=== PATIENT | female | born 1940 | race Caucasian/White ===

== ENCOUNTER → 2016-09-27 | Outpatient (CLI) | payer MEDICARE ==
--- NOTE | 2016-10-07 09:27 | MM ---
Reason for exam: screening (asymptomatic). Last mammogram was performed 1 year and 7 months ago. History: Patient is postmenopausal. Family history of breast cancer in sister. Benign excisional biopsy of the left breast, 1996. Physical Findings: A clinical breast exam by your physician is recommended on an annual basis and results should be correlated with mammographic findings. MG Screening Mammo w CAD Bilateral CC and MLO view(s) were taken. Prior study comparison: March 11, 2015, mammogram, performed at [facility]. January 31, 2014, mammogram, performed at [facility]. There are scattered fibroglandular densities. No significant changes when compared with prior studies. ASSESSMENT: Negative, BI-RAD 1 RECOMMENDATION: Routine screening mammogram of both breasts in 1 year.
== END | disposition home or self-care (01) ==
LOC: RADMAMWWP 16:35
PROVIDERS: ATTEND Family Medicine
DX: Z12.31 Encounter for screening mammogram for malignant neoplasm of breast (principal)

== ENCOUNTER 2019-12-14 10:36 | Emergency (ER) | payer MEDICARE ==
[2019-12-14] MEDS ORDERED: SODIUM CHLORIDE 0.9% 500 ML 500 ML IV STA (11:14)
[2019-12-14] MEDS ORDERED: LABETALOL 5 MG/ML VIAL MDV IVP STA (11:14)
[2019-12-14 11:42] LABS: Basophils % (A) 1 %; Eosinophils # (A) 0.2 k/uL (0-0.7); Eosinophils % (A) 3 %; HCT 43.2 % (34.0-46.0); HGB 14.1 gm/dL (11.4-16.0); Lymphocytes # (A) 1.7 k/uL (1.0-4.8); Lymphocytes % (A) 25 %; MCH 28.8 pg (25.0-35.0); MCHC 32.7 g/dL (31.0-37.0); Mean Platelet Volume 7.1; Monocytes # (A) 0.4 k/uL (0-1.0); Monocytes % (A) 5 %; Neutrophils # (A) 4.4 k/uL (1.3-7.7); Neutrophils % (A) 65 %; Platelet Count 277 k/uL (150-450); RDW 13.6 % (11.5-15.5); WBC 6.7 k/uL (3.8-10.6)
[2019-12-14 11:43] LABS: Appearance,Urine Clear (Clear); Bacteria,Urine Many /hpf; Bilirubin,Urine Negative (Negative); Blood,Urine Negative (Negative); Color,Urine Light Yellow; Glucose,Urine (UA) Negative (Negative); Ketones,Urine Negative (Negative); Leukocyte Esterase,Urine Moderate (Negative); Nitrite,Urine Negative (Negative); PH, Urine 6.5 (5.0-8.0); Protein,Urine Negative (Negative); RBC,Urine 1 /hpf (0-5); Specific Gravity,Urine 1.005 (1.001-1.035); Squamous Epithelial Cell,Urine 2 /hpf (0-4); Urobilinogen,Urine <2.0 mg/dL (<2.0); WBC,Urine 6 /hpf (0-5)
[2019-12-14 11:54] LABS: Partial Thromboplastin Time 22.8 sec (22.0-30.0); Prothrombin Time 10.1 sec (9.0-12.0)
[2019-12-14 11:55] LABS: Albumin 4.4 g/dL (3.5-5.0); Calcium 9.5 mg/dL (8.4-10.2); Total Bilirubin 0.5 mg/dL (0.2-1.3); Total Protein 7.5 g/dL (6.3-8.2)
--- NOTE | 2019-12-14 12:01 | ED ---
Headache HPI - General Chief Complaint: Headache Stated Complaint: High BP/headache Time Seen by Provider: 12/14/19 10:50 Mode of arrival: ambulatory Limitations: no limitations - History of Present Illness Initial Comments: Patient is a 79-year-old female presenting to the emergency Department with complaints of intermittent headaches as well as high blood pressure since this morning. Patient states she has been dealing with elevated blood pressure for the last 2 months. She states she had a brain MRI in the middle of September because she was having elevated blood pressure and headaches. Patient states there is nothing significant on the MRI. Patient's doctor did start her on metoprolol which she has been taking in the morning every day. She does monitor her blood pressures at home. Patient states she gets these "sharp shooting pains on the left side of her head" that lasts anywhere from a few minutes to 10 minutes and then they go completely away. Patient states that happened this morning a few different times which cause her to become nauseous and now she feels tired. At this time, she currently does not have the sharp shooting pains, no nausea. She denies any recent fever, chills, chest pain, short of breath, abdominal pain, urinary complaints. She states she has not been any other new medications recently. She denies any falls or trauma. She denies any blurry vision, eye pain. She has no further complaints at this time. Upon arrival to the ER, patient's blood pressure is 203/78, rest of vitals were normal. Recheck of the blood pressure approximately 20 minutes later was 162/82. - Related Data Home Medications Medication Instructions Recorded Confirmed Aspirin EC [Ecotrin Low Dose] 81 mg PO DAILY 12/14/19 12/14/19 Atorvastatin [Lipitor] 10 mg PO Q48H 12/14/19 12/14/19 Cholecalciferol [Vitamin D3 (25 1,000 unit PO DAILY 12/14/19 12/14/19 Mcg = 1000 Iu)] Metoprolol Succinate [Toprol XL] 50 mg PO DAILY 12/14/19 12/14/19 Multivitamins, Thera [Multivitamin 1 tab PO DAILY 12/14/19 12/14/19 (formulary)] Vitamin B Complex 1 cap PO DAILY 12/14/19 12/14/19 Allergies Allergy/AdvReac Type Severity Reaction Status Date / Time Sulfa (Sulfonamide Allergy Unknown Verified 12/14/19 11:54 Antibiotics) Childhood valacyclovir [From Valtrex] Allergy Rash/Hives Verified 12/14/19 11:54 Review of Systems ROS Statement: Those systems with pertinent positive or pertinent negative responses have been documented in the HPI. ROS Other: All systems not noted in ROS Statement are negative. Past Medical History Past Medical History: Hyperlipidemia, Hypertension History of Any Multi-Drug Resistant Organisms: None Reported Past Surgical History: No Surgical Hx Reported Past Psychological History: No Psychological Hx Reported Smoking Status: Never smoker Past Alcohol Use History: None Reported Past Drug Use History: None Reported General Exam - General Exam Comments Initial Comments: GENERAL: Patient is well-developed and well-nourished. Patient is nontoxic and in no acute distress. HEAD: Atraumatic, normocephalic. No pain to palpation of the temporal areas. EYES: Pupils equal round and reactive to light, extraocular movements intact, sclera anicteric, conjunctiva are normal. Eyelids were unremarkable. ENT: TMs normal, nares patent, oropharynx clear without exudates. Moist mucous membranes. NECK: Normal range of motion, supple without lymphadenopathy or JVD. LUNGS: Unlabored respirations. Breath sounds clear to auscultation bilaterally and equal. No wheezes rales or rhonchi. HEART: Regular rate and rhythm without murmurs, rubs or gallops. ABDOMEN: Soft, nontender, normoactive bowel sounds. No guarding, no rebound. No masses appreciated. : Deferred MUSCULOSKELETAL: Normal extremities with adequate strength and normal range of motion, no pitting or edema. No clubbing or cyanosis. NEUROLOGICAL: Patient is alert and oriented x 3. Motor and sensory are also intact. Cranial nerves II through XII grossly intact. Symmetrical smile. Normal speech, normal gait. PSYCH: Normal mood, normal affect. SKIN: Warm, Dry, normal turgor, no rashes or lesions noted. Limitations: no limitations Course Vital Signs 12/14/19 12/14/19 12/14/19 10:39 11:25 11:40 Temperature 97.9 F Pulse Rate 72 70 72 Respiratory 20 18 18 Rate Blood Pressure 203/78 162/82 145/69 O2 Sat by Pulse 99 98 98 Oximetry 12/14/19 12/14/19 12/14/19 12:34 12:57 13:00 Temperature Pulse Rate 74 72 62 Respiratory 20 16 20 Rate Blood Pressure 197/87 177/77 164/73 O2 Sat by Pulse 98 98 98 Oximetry 12/14/19 12/14/19 14:00 14:15 Temperature 98.2 F Pulse Rate 61 63 Respiratory 20 20 Rate Blood Pressure 154/78 152/69 O2 Sat by Pulse 98 99 Oximetry Medical Decision Making - Medical Decision Making Patient is a 79-year-old female here for intermittent left-sided headaches as well as elevated blood pressure since this morning, but has been dealing with these symptoms for the last 2 months. She had a brain MRI in September which showed no acute abnormalities. Patient's vital signs did show elevated blood pressure of 203 but recheck about 20 minutes later showed at 162/92. Her exam is unremarkable, no acute findings, no acute neuro deficits, no pain with palpation of the temporal areas, no vision changes. Her blood work is within normal limits, her urine does show evidence of bacteria, only [address] of the brain is normal, no acute process. Discussed these findings with the patient. He says blood pressure has remained stable, there was a slight increase after she returned from CT but again it has stabilized. I disc ussed with patient that she continue with her already prescribed blood pressure medication, she is to follow-up with her PCP, possible referral to neurology and cardiology as patient states she has never had a stress test. Patient is in agreement with this plan of care. She is stable for discharge. Return parameters were discussed with the patient she verbalized understanding. Case discussed with Dr. Edmonds. - Lab Data Result diagrams: 12/14/19 11:23 12/14/19 11:23 Lab Results 12/14/19 12/14/19 12/14/19 Range/Units 11:23 11:23 11:23 WBC 6.7 (3.8-10.6) k/uL RBC 4.90 (3.80-5.40) m/uL Hgb 14.1 (11.4-16.0) gm/dL Hct 43.2 (34.0-46.0) % MCV 88.0 (80.0-100.0) fL MCH 28.8 (25.0-35.0) pg MCHC 32.7 (31.0-37.0) g/dL RDW 13.6 (11.5-15.5) % Plt Count 277 (150-450) k/uL Neutrophils % 65 % Lymphocytes % 25 % Monocytes % 5 % Eosinophils % 3 % Basophils % 1 % Neutrophils # 4.4 (1.3-7.7) k/uL Lymphocytes # 1.7 (1.0-4.8) k/uL Monocytes # 0.4 (0-1.0) k/uL Eosinophils # 0.2 (0-0.7) k/uL Basophils # 0.0 (0-0.2) k/uL PT 10.1 (9.0-12.0) sec INR 1.0 (<1.2) APTT 22.8 (22.0-30.0) sec Sodium 139 (137-145) mmol/L Potassium 4.0 (3.5-5.1) mmol/L Chloride 105 (98-107) mmol/L Carbon Dioxide 24 (22-30) mmol/L Anion Gap 10 mmol/L BUN 17 (7-17) mg/dL Creatinine 0.76 (0.52-1.04) mg/dL Est GFR (CKD-EPI)AfAm 88 (>60 ml/min/1.73 sqM) Est GFR (CKD-EPI)NonAf 76 (>60 ml/min/1.73 sqM) Glucose 109 H (74-99) mg/dL Calcium 9.5 (8.4-10.2) mg/dL Total Bilirubin 0.5 (0.2-1.3) mg/dL AST 29 (14-36) U/L ALT 20 (4-34) U/L Alkaline Phosphatase 101 (38-126) U/L Total Protein 7.5 (6.3-8.2) g/dL Albumin 4.4 (3.5-5.0) g/dL Urine Color Urine Appearance (Clear) Urine pH (5.0-8.0) Ur Specific [place] (1.001-1.035) Urine Protein (Negative) Urine Glucose (UA) (Negative) Urine Ketones (Negative) Urine Blood (Negative) Urine Nitrite (Negative) Urine Bilirubin (Negative) Urine Urobilinogen (<2.0) mg/dL Ur Leukocyte Esterase (Negative) Urine RBC (0-5) /hpf Urine WBC (0-5) /hpf Ur Squamous Epith Cells (0-4) /hpf Urine Bacteria (None) /hpf 12/14/19 Range/Units 11:23 WBC (3.8-10.6) k/uL RBC (3.80-5.40) m/uL Hgb (11.4-16.0) gm/dL Hct (34.0-46.0) % MCV (80.0-100.0) fL MCH (25.0-35.0) pg MCHC (31.0-37.0) g/dL RDW (11.5-15.5) % Plt Count (150-450) k/uL Neutrophils % % Lymphocytes % % Monocytes % % Eosinophils % % Basophils % % Neutrophils # (1.3-7.7) k/uL Lymphocytes # (1.0-4.8) k/uL Monocytes # (0-1.0) k/uL Eosinophils # (0-0.7) k/uL Basophils # (0-0.2) k/uL PT (9.0-12.0) sec INR (<1.2) APTT (22.0-30.0) sec Sodium (137-145) mmol/L Potassium (3.5-5.1) mmol/L Chloride (98-107) mmol/L Carbon Dioxide (22-30) mmol/L Anion Gap mmol/L BUN (7-17) mg/dL Creatinine (0.52-1.04) mg/dL Est GFR (CKD-EPI)AfAm (>60 ml/min/1.73 sqM) Est GFR (CKD-EPI)NonAf (>60 ml/min/1.73 sqM) Glucose (74-99) mg/dL Calcium (8.4-10.2) mg/dL Total Bilirubin (0.2-1.3) mg/dL AST (14-36) U/L ALT (4-34) U/L Alkaline Phosphatase (38-126) U/L Total Protein (6.3-8.2) g/dL Albumin (3.5-5.0) g/dL Urine Color Light Yellow Urine Appearance Clear (Clear) Urine pH 6.5 (5.0-8.0) Ur Specific [place] 1.005 (1.001-1.035) Urine Protein Negative (Negative) Urine Glucose (UA) Negative (Negative) Urine Ketones Negative (Negative) Urine Blood Negative (Negative) Urine Nitrite Negative (Negative) Urine Bilirubin Negative (Negative) Urine Urobilinogen <2.0 (<2.0) mg/dL Ur Leukocyte Esterase Moderate H (Negative) Urine RBC 1 (0-5) /hpf Urine WBC 6 H (0-5) /hpf Ur Squamous Epith Cells 2 (0-4) /hpf Urine Bacteria Many H (None) /hpf - EKG Data EKG Comments: Normal sinus rhythm, normal ECG, no signs of acute ischemia. Ventricular rate 60, P interval 168, QTC 454. Disposition Clinical Impression: Headache, Hypertension Disposition: HOME SELF-CARE Condition: Stable Instructions (If sedation given, give patient instructions): Acute Headache (ED) Additional Instructions: Please return to the Emergency Department if symptoms worsen or any other concerns. Follow-up with PCP, neurologist as well as seafood service team member as discussed. Is patient prescribed a controlled substance at d/c from ED?: No Referrals: Kevin Watson MD [Primary Care Provider] - 1-2 days
--- NOTE | 2019-12-14 12:40 | CT ---
EXAMINATION TYPE: CT brain wo con DATE OF EXAM: 12/14/2019 HISTORY: HTN and Left frontal head pain and pressure. CT DLP: 1076.4 mGycm. Automated Exposure Control for Dose Reduction was Utilized. TECHNIQUE: CT scan of the head is performed without contrast. COMPARISON: None. FINDINGS: There is no acute intracranial hemorrhage or midline shift identified. There is diffuse v entricular and sulcal prominence consistent with diffuse age-related cerebral atrophy. Villaseñor-white mat ter differentiation fairly well maintained. The globes are intact and the visualized sinuses are marianne ar. IMPRESSION: No acute intracranial hemorrhage or midline shift. There is mild to moderate diffuse ce rebral atrophy noted.
[2019-12-14 14:14] VITALS: RESP 20
[2019-12-14 14:16] VITALS: BP 152/69; PULSE 63; TEMP 98.2
== END 2019-12-14 14:27 | disposition home or self-care (01) ==
LOC: EC 10:36
DX: I10 Essential (primary) hypertension (principal); E78.5 Hyperlipidemia, unspecified; Z79.899 Other long term (current) drug therapy; Z88.2 Allergy status to sulfonamides; Z88.8 Allergy status to other drugs, medicaments and biological substances
CPT/HCPCS: 36415; 70450; 80053; 81001; 85025; 85610; 85730; 93005; 99284

== ENCOUNTER 2021-03-22 05:56 | Observation (INO) | payer MEDICARE ==
[2021-03-22] MEDS ORDERED: HYDROmorphone 0.5 MG/0.5 ML SYRINGE IVP STA ×2 (06:18→08:08)
[2021-03-22] MEDS ORDERED: ONDANSETRON 4 MG/2 ML VIAL IVP STA (06:18)
[2021-03-22] MEDS ORDERED: SODIUM CHLORIDE 0.9% 1,000 ML IV STA (06:18)
--- NOTE | 2021-03-22 06:34 | ED ---
General Adult HPI - General Chief complaint: Abdominal Pain Stated complaint: R Flank Pain Time Seen by Provider: 03/22/21 06:12 Source: patient, RN notes reviewed Mode of arrival: ambulatory Limitations: no limitations - History of Present Illness Initial comments: 81-year-old female presents to the emergency room for right upper abdominal pain. Patient has had right upper abdominal pain since 2 days ago. Patient states she went out to dinner and had a fish dinner and then a couple hours later started to develop severe right upper quadrant abdominal pain. States she has been vomiting and not able to eat much because of this. Patient denies fe vers. Denies diarrhea. Patient denies any previous abdominal surgeries.Patient has no other complaints at this time including shortness of breath, chest pain, headache, or visual changes. - Related Data Home Medications Medication Instructions Recorded Confirmed Aspirin EC [Ecotrin Low Dose] 81 mg PO DAILY 12/14/19 03/22/21 Atorvastatin [Lipitor] 10 mg PO Q48H 12/14/19 03/22/21 Metoprolol Succinate [Toprol XL] 50 mg PO DAILY 12/14/19 03/22/21 Multivitamins, Thera [Multivitamin 1 tab PO DAILY 12/14/19 03/22/21 (formulary)] Vitamin B Complex 1 cap PO DAILY 12/14/19 03/22/21 Cholecalciferol [Vitamin D3 (25 25 mcg PO DAILY 03/22/21 03/22/21 Mcg = 1000 Iu)] Metoprolol Succinate (ER) [Toprol 25 mg PO HS 03/22/21 03/22/21 Xl] hydroCHLOROthiazide 25 mg PO DAILY 03/22/21 03/22/21 Allergies Allergy/AdvReac Type Severity Reaction Status Date / Time Sulfa (Sulfonamide Allergy Unknown Verified 03/22/21 09:17 Antibiotics) Childhood valacyclovir [From Valtrex] Allergy Rash/Hives Verified 03/22/21 09:17 Review of Systems ROS Statement: Those systems with pertinent positive or pertinent negative responses have been documented in the HPI. ROS Other: All systems not noted in ROS Statement are negative. Past Medical History Past Medical History: Hyperlipidemia, Hypertension History of Any Multi-Drug Resistant Organisms: None Reported Past Surgical History: Orthopedic Surgery, Tubal Ligation Past Psychological History: No Psychological Hx Reported Smoking Status: Never smoker Past Alcohol Use History: None Reported Past Drug Use History: None Reported General Exam Limitations: no limitations General appearance: alert, in no apparent distress Head exam: Present: atraumatic Eye exam: Present: normal appearance, PERRL, EOMI. Absent: scleral icterus, conjunctival injection ENT exam: Present: normal exam, mucous membranes moist Neck exam: Present: normal inspection, full ROM. Absent: tenderness Respiratory exam: Present: normal lung sounds bilaterally. Absent: respiratory distress, wheezes, rales Cardiovascular Exam: Present: regular rate, normal rhythm, normal heart sounds GI/Abdominal exam: Present: soft, tenderness (ruq abdominal tenderness), guarding, normal bowel sounds. Absent: distended Neurological exam: Present: alert Course Vital Signs 03/22/21 03/22/21 06:02 07:51 Temperature 98.3 F Pulse Rate 77 63 Respiratory 16 18 Rate Blood Pressure 148/66 131/65 O2 Sat by Pulse 97 92 L Oximetry EKG Findings - EKG Comments: EKG Findings:: Normal sinus rhythm, ventricular rate 66, AL interval 164, QTc 467 Medical Decision Making - Medical Decision Making vitals are stable. HPI and physical exam as documented. CBC does show leukocytosis. CMP has minimal elevation of bilirubin 1.4 in minimal transaminitis. Troponin is negative. Lactic acid is 2.4. Patient was given fluids. Ultrasound initially was obtained which was unremarkable although a suboptimal study. CT abdomen and pelvis with contrast shows a 1.6 cm gallstone in the gallbladder neck evidence of acute cholecystitis as well. There is inflammatory change of the right side of the colon however this is felt to be more likely related to inflammation from acute cholecystitis. Patient was started on Zosyn. Case was discussed with Dr. Ceron who does feel patient can be seen here, requests admission to medicine with consult himself. - Lab Data Result diagrams: 03/22/21 07:03 03/22/21 08:37 Lab Results 03/22/21 03/22/21 03/22/21 Range/Units 07:03 07:03 07:03 WBC 14.6 H (3.8-10.6) k/uL RBC 5.08 (3.80-5.40) m/uL Hgb 15.5 (11.4-16.0) gm/dL Hct 45.5 (34.0-46.0) % MCV 89.5 (80.0-100.0) fL MCH 30.5 (25.0-35.0) pg MCHC 34.0 (31.0-37.0) g/dL RDW 14.3 (11.5-15.5) % Plt Count 329 (150-450) k/uL MPV 7.4 Neutrophils % 87 % Lymphocytes % 6 % Monocytes % 5 % Eosinophils % 1 % Basophils % 0 % Neutrophils # 12.8 H (1.3-7.7) k/uL Lymphocytes # 0.8 L (1.0-4.8) k/uL Monocytes # 0.8 (0-1.0) k/uL Eosinophils # 0.1 (0-0.7) k/uL Basophils # 0.0 (0-0.2) k/uL Sodium (137-145) mmol/L Potassium (3.5-5.1) mmol/L Chloride (98-107) mmol/L Carbon Dioxide (22-30) mmol/L Anion Gap mmol/L BUN (7-17) mg/dL Creatinine (0.52-1.04) mg/dL Est GFR (CKD-EPI)AfAm (>60 ml/min/1.73 sqM) Est GFR (CKD-EPI)NonAf (>60 ml/min/1.73 sqM) Glucose (74-99) mg/dL Lactic Ac Sepsis Rflx Plasma Lactic Acid Issa 2.4 H* (0.7-2.0) mmol/L Calcium (8.4-10.2) mg/dL Total Bilirubin (0.2-1.3) mg/dL AST (14-36) U/L ALT (4-34) U/L Alkaline Phosphatase (38-126) U/L Troponin I (0.000-0.034) ng/mL Total Protein (6.3-8.2) g/dL Albumin (3.5-5.0) g/dL Amylase (30-110) U/L Lipase (23-300) U/L Urine Color Yellow Urine Appearance Cloudy H (Clear) Urine pH 7.0 (5.0-8.0) Ur Specific [place] 1.018 (1.001-1.035) Urine Protein Trace H (Negative) Urine Glucose (UA) Negative (Negative) Urine Ketones Negative (Negative) Urine Blood Negative (Negative) Urine Nitrite Negative (Negative) Urine Bilirubin Negative (Negative) Urine Urobilinogen <2.0 (<2.0) mg/dL Ur Leukocyte Esterase Large H (Negative) Urine RBC 1 (0-5) /hpf Urine WBC 22 H (0-5) /hpf Ur Squamous Epith Cells 7 H (0-4) /hpf Urine Bacteria Occasional H (None) /hpf Urine Mucus Rare H (None) /hpf 03/22/21 03/22/21 03/22/21 Range/Units 07:46 07:49 08:37 WBC (3.8-10.6) k/uL RBC (3.80-5.40) m/uL Hgb (11.4-16.0) gm/dL Hct (34.0-46.0) % MCV (80.0-100.0) fL MCH (25.0-35.0) pg MCHC (31.0-37.0) g/dL RDW (11.5-15.5) % Plt Count (150-450) k/uL MPV Neutrophils % % Lymphocytes % % Monocytes % % Eosinophils % % Basophils % % Neutrophils # (1.3-7.7) k/uL Lymphocytes # (1.0-4.8) k/uL Monocytes # (0-1.0) k/uL Eosinophils # (0-0.7) k/uL Basophils # (0-0.2) k/uL Sodium 135 L (137-145) mmol/L Potassium 3.9 (3.5-5.1) mmol/L Chloride 106 (98-107) mmol/L Carbon Dioxide 24 (22-30) mmol/L Anion Gap 5 mmol/L BUN 14 (7-17) mg/dL Creatinine 0.57 (0.52-1.04) mg/dL Est GFR (CKD-EPI)AfAm >90 (>60 ml/min/1.73 sqM) Est GFR (CKD-EPI)NonAf 89 (>60 ml/min/1.73 sqM) Glucose 135 H (74-99) mg/dL Lactic Ac Sepsis Rflx Y Plasma Lactic Acid Issa (0.7-2.0) mmol/L Calcium 8.4 (8.4-10.2) mg/dL Total Bilirubin 1.4 H (0.2-1.3) mg/dL AST 59 H (14-36) U/L ALT 37 H (4-34) U/L Alkaline Phosphatase 83 (38-126) U/L Troponin I <0.012 (0.000-0.034) ng/mL Total Protein 6.5 (6.3-8.2) g/dL Albumin 3.4 L (3.5-5.0) g/dL Amylase 51 (30-110) U/L Lipase 36 (23-300) U/L Urine Color Urine Appearance (Clear) Urine pH (5.0-8.0) Ur Specific [place] (1.001-1.035) Urine Protein (Negative) Urine Glucose (UA) (Negative) Urine Ketones (Negative) Urine Blood (Negative) Urine Nitrite (Negative) Urine Bilirubin (Negative) Urine Urobilinogen (<2.0) mg/dL Ur Leukocyte Esterase (Negative) Urine RBC (0-5) /hpf Urine WBC (0-5) /hpf Ur Squamous Epith Cells (0-4) /hpf Urine Bacteria (None) /hpf Urine Mucus (None) /hpf Disposition Clinical Impression: Gallstone, Cholecystitis, Lactic acidosis, Transaminitis Disposition: ADMITTED IP TO THIS HOSP Is patient prescribed a controlled substance at d/c from ED?: No Referrals: Kevin Watson MD [Primary Care Provider] - 1-2 days Time of Disposition: 10:24
--- NOTE | 2021-03-22 07:26 | US ---
EXAMINATION TYPE: US gallbladder DATE OF EXAM: 03/22/2021 COMPARISON: NONE CLINICAL HISTORY: pain. Pain, N/V EXAM MEASUREMENTS: Liver Length: 15.5 cm Gallbladder Wall: 0.2 cm Right Kidney: 9.1 x 5.1 x 4.1 cm Pancreas: Obscured by bowel gas Liver: wnl, scanned through ribs due to bowel gas Gallbladder: Slightly enlarged in size Evidence for sonographic Avelar's sign: neg CBD: Obscured by overlying bowel gas Right Kidney: No hydronephrosis or masses seen Pancreas is suboptimally seen on initial images. Visualized liver is heterogeneously hyperechoic. Ghazala luation for focal masses suboptimal due to the heterogeneity. Common bile duct not well seen. No intr ahepatic biliary dilatation. Visualized portions of the gallbladder show no mobile intraluminal galls tones. No suspicious wall thickening or surrounding fluid. No right-sided hydronephrosis. IMPRESSION: Suboptimal study without intraluminal gallstones or ultrasound evidence for acute cholecy stitis.
[2021-03-22 07:36] LABS: Basophils % (A) 0 %; Eosinophils # (A) 0.1 k/uL (0-0.7); Eosinophils % (A) 1 %; HCT 45.5 % (34.0-46.0); HGB 15.5 gm/dL (11.4-16.0); Lymphocytes # (A) 0.8 k/uL (1.0-4.8); Lymphocytes % (A) 6 %; MCH 30.5 pg (25.0-35.0); MCV 89.5 fL (80.0-100.0); Mean Platelet Volume 7.4; Monocytes # (A) 0.8 k/uL (0-1.0); Monocytes % (A) 5 %; Neutrophils # (A) 12.8 k/uL (1.3-7.7); Neutrophils % (A) 87 %; Platelet Count 329 k/uL (150-450); RBC 5.08 m/uL (3.80-5.40); RDW 14.3 % (11.5-15.5); WBC 14.6 k/uL (3.8-10.6)
[2021-03-22 07:38] LABS: Appearance,Urine Cloudy (Clear); Bacteria,Urine Occasional /hpf; Bilirubin,Urine Negative (Negative); Blood,Urine Negative (Negative); Color,Urine Yellow; Glucose,Urine (UA) Negative (Negative); Ketones,Urine Negative (Negative); Leukocyte Esterase,Urine Large (Negative); Mucus,Urine Rare /hpf; Nitrite,Urine Negative (Negative); Protein,Urine Trace (Negative); RBC,Urine 1 /hpf (0-5); Specific Gravity,Urine 1.018 (1.001-1.035); Squamous Epithelial Cell,Urine 7 /hpf (0-4); Urobilinogen,Urine <2.0 mg/dL (<2.0); WBC,Urine 22 /hpf (0-5)
[2021-03-22 09:03] LABS: ALT 37 U/L (4-34); African American GFR (CKD) >90 (>60 ml/min/1.73 sqM); Albumin 3.4 g/dL (3.5-5.0); Amylase 51 U/L (30-110); Anion Gap 5 mmol/L; Blood Urea Nitrogen 14 mg/dL (7-17); Calcium 8.4 mg/dL (8.4-10.2); Carbon Dioxide 24 mmol/L (22-30); Chloride 106 mmol/L (98-107); Glucose 135 mg/dL (74-99); Lipase 36 U/L (23-300); Non-African American GFR(CKD) 89 (>60 ml/min/1.73 sqM); Sodium 135 mmol/L (137-145); Total Bilirubin 1.4 mg/dL (0.2-1.3); Total Protein 6.5 g/dL (6.3-8.2)
[2021-03-22 09:14] LABS: AST 59 U/L (14-36); Alkaline Phosphatase 83 U/L (38-126); Potassium 3.9 mmol/L (3.5-5.1)
--- NOTE | 2021-03-22 10:09 | CT ---
EXAMINATION TYPE: CT abdomen pelvis w con DATE OF EXAM: 03/22/2021 HISTORY: Right upper quadrant pain CT DLP: 990.9mGycm Automated Exposure Control for Dose Reduction was Utilized. CONTRAST: CT scan of the abdomen and pelvis is performed without oral but with IV Contrast, patient injected wi th 100 mL of Isovue 300. COMPARISON: Same date gallbladder ultrasound FINDINGS: LUNG BASES: Dependent atelectasis and/or developing consolidation, correlate clinically. LIVER/GB: Visualized liver is heterogeneously hypodense. There is a 1.6 cm calcified gallstone in the gallbladder neck are not clearly seen on ultrasound. Gallbladder has distended margins with suggesti on of mild surrounding fat stranding on CT. No intrahepatic or extrahepatic biliary dilatation noted. PANCREAS: Better seen on CT and appears within normal limits. SPLEEN: Incidental 9 mm calcified aneurysm in the hilum axial image 24. ADRENALS: No significant abnormality is seen. KIDNEYS: Symmetric cortical medullary uptake and excretion without hydronephrosis seen bilaterally. T here is 1.8 cm benign-appearing thin-walled cyst lower pole right kidney. Probable 1 to 2 mm nonobstr ucting calculus lower pole left kidney coronal image 62. BOWEL: Diffuse diverticula throughout the nearly entire colon mild fat stranding anterior right aspec t extends from the level of dilated gallbladder inferiorly. No well-formed fluid collection or absces s. No free air. UTERUS/ADNEXA: Anteverted uterus. Prominent left-sided draining ovarian veins. Ovarian congestion syn drome cannot be excluded in appropriate clinical setting. Small amount of free fluid in the pelvic cu l-de-sac axial images 71 through 75 LYMPH NODES: No greater than 1cm abdominal or pelvic lymph nodes are appreciated. OSSEOUS STRUCTURES: Multilevel spinous process hypertrophy. Moderate axial joint space loss in both h ips. OTHER: No significant additional abnormality is seen. IMPRESSION: 1. There is 1.6 cm gallstone in the gallbladder neck. Gallbladder has distended margins. Diffuse colo marquez diverticulosis including right colonic involvement. Mild right-sided inflammatory change favors p roduct of acute cholecystitis with reactive change along the right colon. Acute diverticulitis as jacinto mary ann source felt less likely but not entirely excluded.
[2021-03-22] MEDS ORDERED: PIPERACILLIN-TAZOBACTAM 3.375 GM in SODIUM CHLORIDE 0.9% 100 ML IVPB STA (10:14)
[2021-03-22] MEDS ORDERED: NALOXONE 0.4 MG/ML 1 ML VIAL IV PRN (10:24)
[2021-03-22] MEDS ORDERED: ONDANSETRON 4 MG/2 ML VIAL IVP PRN (10:24)
[2021-03-22] MEDS: SODIUM CHLORIDE 0.9% 1,000 ML IV SCH ×2 (10:36→19:35)
[2021-03-22] MEDS: HYDROmorphone 1 MG/ML 1 ML SYRINGE IVP PRN ×3 (11:12→21:50)
--- NOTE | 2021-03-22 13:17 | XR ---
EXAMINATION TYPE: XR chest 1V portable DATE OF EXAM: 03/22/2021 CLINICAL HISTORY: Right-sided pain, covid positive. TECHNIQUE: Single AP portable upright view of the chest is obtained. COMPARISON: CT abdomen and pelvis earlier today FINDINGS: Osseous structures are demineralized. High riding humeral heads bilaterally consistent wit h chronic rotator cuff tears. Cardiac silhouette size is stable and upper limits of normal. Chronic p arenchymal changes with patchy right greater than left bibasilar opacities. No pneumothorax seen bila terally. IMPRESSION: Chronic changes with right greater than left bibasilar atelectasis and/or acute infiltrat es.
[2021-03-22] MEDS: METOPROLOL SUCCINATE (ER) 50 MG TAB.ER.24H PO SCH (13:25)
[2021-03-22] MEDS: ATORVASTATIN 10 MG TAB PO SCH (13:27)
--- NOTE | 2021-03-22 14:55 | P.GSCN ---
History of Present Illness Consult date: 03/22/21 History of present illness: 81-year-old female presents to the emergency department with complaints of 2 days of abdominal pain in the right upper quadrant that comes and goes in waves. She states that she had a fish dinner on Tuesday evening and the pain started after that meal. She also complains of nausea and vomiting episodes over the past 24 hours. On workup, patient was found to have cholelithiasis and concern of cholecystitis with a stone in the gallbladder neck. There also is some surrounding inflammatory changes. She denies any fevers, chills, chest pain or shortness of breath. She denies having any previous abdominal surgery. Review of Systems All systems: negative Past Medical History Past Medical History: Hyperlipidemia, Hypertension History of Any Multi-Drug Resistant Organisms: None Reported Past Surgical History: Orthopedic Surgery, Tubal Ligation Past Anesthesia/Blood Transfusion Reactions: No Reported Reaction Past Psychological History: No Psychological Hx Reported Smoking Status: Never smoker Past Alcohol Use History: None Reported Past Drug Use History: None Reported - Past Family History Mother Family Medical History: Diabetes Mellitus Additional Family Medical History / Comment(s): heart problems Medications and Allergies Home Medications Medication Instructions Recorded Confirmed Type Aspirin EC [Ecotrin Low Dose] 81 mg PO DAILY 12/14/19 03/22/21 History Atorvastatin [Lipitor] 10 mg PO Q48H 12/14/19 03/22/21 History Metoprolol Succinate [Toprol XL] 50 mg PO DAILY 12/14/19 03/22/21 History Multivitamins, Thera [Multivitamin 1 tab PO DAILY 12/14/19 03/22/21 History (formulary)] Vitamin B Complex 1 cap PO DAILY 12/14/19 03/22/21 History Cholecalciferol [Vitamin D3 (25 25 mcg PO DAILY 03/22/21 03/22/21 History Mcg = 1000 Iu)] Metoprolol Succinate (ER) [Toprol 25 mg PO HS 03/22/21 03/22/21 History Xl] hydroCHLOROthiazide 25 mg PO DAILY 03/22/21 03/22/21 History Allergies Allergy/AdvReac Type Severity Reaction Status Date / Time Sulfa (Sulfonamide Allergy Unknown Verified 03/22/21 09:17 Antibiotics) Childhood valacyclovir [From Valtrex] Allergy Rash/Hives Verified 03/22/21 09:17 Surgical - Exam Osteopathic Statement: *. No significant issues noted on an osteopathic structural exam other than those noted in the History and Physical/Consult. Vital Signs Temp Pulse Resp BP Pulse Ox 98.3 F 77 16 148/66 97 03/22/21 06:02 03/22/21 06:02 03/22/21 06:02 03/22/21 06:02 03/22/21 06:02 - General well nourished, no distress - Eyes normal ocular movement - ENT no hearing loss - Neck trachea midline - Respiratory normal respiratory effort - Abdomen Soft, tender to palpation in right upper quadrant, nondistended, no rebound, no guarding - Psychiatric oriented to time, oriented to person, oriented to place Results - Labs 03/22/21 07:03 03/22/21 08:37 Abnormal Lab Results - Last 24 Hours (Table) 03/22/21 03/22/21 03/22/21 Range/Units 07:03 07:03 07:03 WBC 14.6 H (3.8-10.6) k/uL Neutrophils # 12.8 H (1.3-7.7) k/uL Lymphocytes # 0.8 L (1.0-4.8) k/uL Sodium (137-145) mmol/L Glucose (74-99) mg/dL Plasma Lactic Acid Issa 2.4 H* (0.7-2.0) mmol/L Total Bilirubin (0.2-1.3) mg/dL AST (14-36) U/L ALT (4-34) U/L Albumin (3.5-5.0) g/dL Urine Appearance Cloudy H (Clear) Urine Protein Trace H (Negative) Ur Leukocyte Esterase Large H (Negative) Urine WBC 22 H (0-5) /hpf Ur Squamous Epith Cells 7 H (0-4) /hpf Urine Bacteria Occasional H (None) /hpf Urine Mucus Rare H (None) /hpf Coronavirus (PCR) (Not Detectd) 03/22/21 03/22/21 Range/Units 08:37 10:41 WBC (3.8-10.6) k/uL Neutrophils # (1.3-7.7) k/uL Lymphocytes # (1.0-4.8) k/uL Sodium 135 L (137-145) mmol/L Glucose 135 H (74-99) mg/dL Plasma Lactic Acid Issa (0.7-2.0) mmol/L Total Bilirubin 1.4 H (0.2-1.3) mg/dL AST 59 H (14-36) U/L ALT 37 H (4-34) U/L Albumin 3.4 L (3.5-5.0) g/dL Urine Appearance (Clear) Urine Protein (Negative) Ur Leukocyte Esterase (Negative) Urine WBC (0-5) /hpf Ur Squamous Epith Cells (0-4) /hpf Urine Bacteria (None) /hpf Urine Mucus (None) /hpf Coronavirus (PCR) Detected A (Not Detectd) Microbiology - Last 24 Hours (Table) 03/22/21 07:03 Urine Culture - Preliminary Urine,Clean Catch Diabetes panel 03/22/21 Range/Units 08:37 Sodium 135 L (137-145) mmol/L Potassium 3.9 (3.5-5.1) mmol/L Chloride 106 (98-107) mmol/L Carbon Dioxide 24 (22-30) mmol/L BUN 14 (7-17) mg/dL Creatinine 0.57 (0.52-1.04) mg/dL Glucose 135 H (74-99) mg/dL Calcium 8.4 (8.4-10.2) mg/dL AST 59 H (14-36) U/L ALT 37 H (4-34) U/L Alkaline Phosphatase 83 (38-126) U/L Total Protein 6.5 (6.3-8.2) g/dL Albumin 3.4 L (3.5-5.0) g/dL Calcium panel 03/22/21 Range/Units 08:37 Calcium 8.4 (8.4-10.2) mg/dL Albumin 3.4 L (3.5-5.0) g/dL Pituitary panel 03/22/21 Range/Units 08:37 Sodium 135 L (137-145) mmol/L Potassium 3.9 (3.5-5.1) mmol/L Chloride 106 (98-107) mmol/L Carbon Dioxide 24 (22-30) mmol/L BUN 14 (7-17) mg/dL Creatinine 0.57 (0.52-1.04) mg/dL Glucose 135 H (74-99) mg/dL Calcium 8.4 (8.4-10.2) mg/dL Adrenal panel 03/22/21 Range/Units 08:37 Sodium 135 L (137-145) mmol/L Potassium 3.9 (3.5-5.1) mmol/L Chloride 106 (98-107) mmol/L Carbon Dioxide 24 (22-30) mmol/L BUN 14 (7-17) mg/dL Creatinine 0.57 (0.52-1.04) mg/dL Glucose 135 H (74-99) mg/dL Calcium 8.4 (8.4-10.2) mg/dL Total Bilirubin 1.4 H (0.2-1.3) mg/dL AST 59 H (14-36) U/L ALT 37 H (4-34) U/L Alkaline Phosphatase 83 (38-126) U/L Total Protein 6.5 (6.3-8.2) g/dL Albumin 3.4 L (3.5-5.0) g/dL Assessment and Plan Plan: 81-year-old female with acute cholecystitis secondary to cholelithiasis. Case was discussed with the admitting physician and patient has been cleared for surgical procedure. Based on findings, we will plan for a laparoscopic or robotic cholecystectomy. Patient is to remain nothing by mouth. Laboratory values were discussed with the patient and the patient's admitting physician. P atient is noted to total bilirubin of 1.4, however on imaging no finding of any ductal dilation. This is likely secondary to surrounding inflammation as there are no signs of choledocholithiasis at this time. I did discuss with the patient's admitting physician that there is no GI coverage at the hospital and if patient does require ERCP, transfer will need to be made. We will plan to move forward with surgical procedure. Risks, benefits and alternatives were provided to the patient and she has provided consent for undergoing the procedure. Further recommendations after procedure is completed .
[2021-03-22] MEDS ORDERED: ROCURONIUM 10 MG/ML (5 ML VIAL) IV ONE (16:20)
[2021-03-22] MEDS ORDERED: INDOCYANINE GREEN 25 MG VIAL IV ONE (16:20)
[2021-03-22] MEDS ORDERED: GLYCOPYRROLATE 0.2 MG/ML 2 ML VIAL ONE (16:20)
[2021-03-22] MEDS ORDERED: SODIUM CHLORIDE 0.9% 1,000 ML IV ONE (16:20)
[2021-03-22] MEDS ORDERED: NEOSTIGMINE 1 MG/ML 10 ML VIAL ONE (16:20)
[2021-03-22] MEDS ORDERED: LIDOCAINE 1% INJ 10MG/ML (20 ML MDV) ONE (16:20)
[2021-03-22] MEDS ORDERED: SUCCINYLCHOLINE CHLORIDE 100 MG/5 ML SYR IV ONE (16:20)
[2021-03-22] MEDS ORDERED: fentaNYL (PF) 50 MCG/ML 2 ML AMP ONE (16:20)
[2021-03-22] MEDS ORDERED: PROPOFOL 10 MG/ML 20 ML VIAL IV ONE (16:20)
[2021-03-22] MEDS ORDERED: BUPIVACAIN-EPI 0.25%-1:200,000 30 ML VIAL SQ ONE ×2 (16:39→17:09)
[2021-03-22] MEDS ORDERED: LACTATED RINGERS 1,000 ML IV ONE (17:27)
[2021-03-22] MEDS: PIPERACILLIN-TAZOBACTAM 3.375 GM in SODIUM CHLORIDE 0.9% 100 ML IVPB SCH (19:34)
[2021-03-22] MEDS: METOPROLOL SUCCINATE (ER) 25 MG TAB.ER.24H PO SCH (19:34)
--- NOTE | 2021-03-22 20:48 | P.OP ---
Date of Procedure: 03/22/21 Preoperative Diagnosis: Acute cholecystitis Postoperative Diagnosis: Acute cholecystitis Procedure(s) Performed: Robotic cholecystectomy Anesthesia: GAETANO Surgeon: Jolene Ceron Pathology: other (Gallbladder and contents) Condition: stable Disposition: floor Indications for Procedure: 81-year-old female presented to the emergency department with complaints of right upper quadrant abdominal pain. His abdomen going on for proximally 48 hours prior to her arrival. On workup, she was found to have acute cholecystitis with concern of a large gallstone at the gallbladder neck. Secondary to this, plan is for cholecystectomy. Risks, benefits and alternatives were provided to the patient. She did provide consent prior to attending the operating suite. Operative Findings: Large distended gallbladder with significant inflammatory changes and gallbladder wall thickening Description of Procedure: The patient is brought to the operating suite and placed in supine position on the operating table. Sedation was provided by anesthesia and the patient underwent endotracheal intubation. The patient was then prepped and draped in regular sterile fashion. Infraumbilical incision was made dissection was carried to the fascia. The fascia was incised and the abdomen was entered with an 8 mm trocar. Pneumoperitoneum was then achieved. The gallbladder was then clearly visualized and was noted to be significantly distended with inflammatory and edematous changes. 3 additional ports were placed. Two 8 mm trochars were placed in the right lower quadrant and one was placed in the left lower quadrant. The gallbladder was then docked and instruments place. The gallbladder was grasped and retracted. ICG technology was used, however there was no significant absorption into the gallbladder. Dissection was carried to dissect the adherent peritoneal and edematous tissue from the infundibulum of the gallbladder. This was carried towards the cystic duct and cystic duct was skeletonized. Cystic artery was also clearly visualized and skeletonized. Critical view was obtained. 2 clips were placed proximally on the cystic duct one was placed distally and the cystic duct was ligated. 2 clips were placed proximally on the cystic artery and one was placed distally and the cystic artery was ligated. Cautery was then used to dissect the gallbladder from the gallbladder fossa on the liver bed. This was then removed from the abdomen usin g an Endo Catch bag. Copious amounts irrigation was placed in the right upper quadrant and suctioned. Hemostasis was noted to be maintained. No evidence of any bile leakage. ZEE drain was placed and secured just under the liver bed and removed through a 8 mm trocar site in the right lower quadrant. This was secured with a 3-0 nylon suture. The infraumbilical fascia site was closed with 0 Vicryl in interrupted fashion using a [place]-Mary device. No peritoneal was then released. All skin incisions were closed using 4-0 Vicryl subcuticular suture. Sterile dressing was applied. The patient was awakened in the operating suite and taken to postanesthesia care unit in stable condition.
--- NOTE | 2021-03-22 21:34 | P.HPIM ---
History of Present Illness H&P Date: 03/22/21 Chief Complaint: Abdominal pain This is a pleasant 81-year-old patient of Dr. Watson. Chronic stable medical conditions include hypertension, hyperlipidemia, osteomyelitis. Patient otherwise in good health. 2 nights ago patient and the went for a fish dinner. Subsequently she started having increasing abdominal pain. Yesterday patient was throwing up the whole day. Worsening abdominal pain. Had a lot of belching. No fever and chills. Normally has regular bowel movements. Presented for the same. Still having significant abdominal pain. Found to have a gallstone in the gallbladder neck Review of systems: GEN.: Tired EYES: None HEENT: None NECK: None RESPIRATORY: None CARDIOVASCULAR: None GASTROINTESTINAL: [As above GENITOURINARY: None MUSCULOSKELETAL: Joint pains LYMPHATICS: None HEMATOLOGICAL: None PSYCHIATRY: None NEUROLOGICAL: None Past medical history to include: Hypertension, hyperlipidemia, osteoarthritis Social history: , does not smoke or drink alcohol. Family history: Heart problems, diabetes Physical examination: VITAL SIGNS: 98.3, 77, 16, 148/66, 97% room air GENERAL: BMI 29.2, sitting up in a chair, awake, comfortable. EYES: Pupils equal. Conjunctiva normal. HEENT: External appearance of nose and ears normal, oral cavity grossly normal. NECK: JVD not raised; masses not palpable. HEART: First and second heart sounds are normal; no edema. LUNGS: Respiratory rate normal; clear to auscultation. ABDOMEN: Soft, significant right upper quadrant tenderness no obvious guarding rigidity, liver spleen not palpable, no masses palpable. PSYCH: Alert and oriented x3; mood and affect anxiousl. MUSCULOSKELETAL:No Clubbing/cyanosis;muscles-grossly intact. Evidence of OA NEUROLOGICAL: Cranial nerves grossly intact; no facial asymmetry, power and sensation grossly intact. LYMPHATICS: No lymph nodes palpable in the axilla and neck INVESTIGATIONS, reviewed in the clinical context: White count 14.6 hemoglobin 15.5 platelets 329 sodium 135 potassium 3.9 creatinine 0.57 Total bilirubin 1.4 AST 59 ALT 37 lactic acid 2.4 UA showing squamous epithelial cells Coronavirus [PCR]: Detected EKG tracing personally reviewed by me-normal sinus rhythm Chest x-ray film personally reviewed by me-possible infiltrate. Computed tomography scan of the abdomen: 1.600 with a gallstone in the gallbladder neck. Distended margins. Diffuse colonic diverticulosis. Gallbladder ultrasound: Suboptimal study. Assessment and plan: -Acute cholecystitis secondary to a large solitary gallstone 1.6 mm. At the gallbladder neck. Patient is significant tenderness persistent tenderness. Gen. surgery consulted. IV Zosyn. -Possible sepsis IV fluids. IV Zosyn. -Hyperlipidemia Lipitor 10 mg every 48 hours -Essential hypertension Toprol-XL continue -Primary osteoarthritis multiple joints bilateral Tylenol as needed -Hyperbilirubinemia, from starvation from vomiting -Mildly elevated LFTs. Likely from hepatic steatosis Liver ultrasound in a.m. I discussed with Dr. Ceron surgery. He will evaluate the patient this afternoon and and go from there. IV fluids. Subcu Lovenox. Resume home medications. IV Zosyn. Patient is medically stable from a cardiac vascular standpoint to proceed with surgery. Has good exercise tolerance. No active cardiac symptoms. Past Medical History Past Medical History: Hyperlipidemia, Hypertension History of Any Multi-Drug Resistant Organisms: None Reported Past Surgical History: Orthopedic Surgery, Tubal Ligation Past Psychological History: No Psychological Hx Reported Smoking Status: Never smoker Past Alcohol Use History: None Reported Past Drug Use History: None Reported - Past Family History Mother Family Medical History: Diabetes Mellitus Additional Family Medical History / Comment(s): heart problems Medications and Allergies Home Medications Medication Instructions Recorded Confirmed Type Aspirin EC [Ecotrin Low Dose] 81 mg PO DAILY 12/14/19 03/22/21 History Atorvastatin [Lipitor] 10 mg PO Q48H 12/14/19 03/22/21 History Metoprolol Succinate [Toprol XL] 50 mg PO DAILY 12/14/19 03/22/21 History Multivitamins, Thera [Multivitamin 1 tab PO DAILY 12/14/19 03/22/21 History (formulary)] Vitamin B Complex 1 cap PO DAILY 12/14/19 03/22/21 History Cholecalciferol [Vitamin D3 (25 25 mcg PO DAILY 03/22/21 03/22/21 History Mcg = 1000 Iu)] Metoprolol Succinate (ER) [Toprol 25 mg PO HS 03/22/21 03/22/21 History Xl] hydroCHLOROthiazide 25 mg PO DAILY 03/22/21 03/22/21 History Allergies Allergy/AdvReac Type Severity Reaction Status Date / Time Sulfa (Sulfonamide Allergy Unknown Verified 03/22/21 09:17 Antibiotics) Childhood valacyclovir [From Valtrex] Allergy Rash/Hives Verified 03/22/21 09:17 Physical Exam Vitals: Vital Signs Temp Pulse Pulse Resp BP BP Pulse Ox 03/22/21 11:25 97.8 F 88 16 134/76 94 L 03/22/21 11:00 68 18 138/66 95 03/22/21 07:51 63 18 131/65 92 L 03/22/21 06:02 98.3 F 77 16 148/66 97 Intake and Output 03/21/21 03/22/21 03/22/21 22:59 06:59 14:59 Other: Weight 77.111 kg Results CBC & Chem 7: 03/22/21 07:03 03/22/21 08:37 Labs: Abnormal Lab Results - Last 24 Hours (Table) 03/22/21 03/22/21 03/22/21 Range/Units 07:03 07:03 07:03 WBC 14.6 H (3.8-10.6) k/uL Neutrophils # 12.8 H (1.3-7.7) k/uL Lymphocytes # 0.8 L (1.0-4.8) k/uL Sodium (137-145) mmol/L Glucose (74-99) mg/dL Plasma Lactic Acid Issa 2.4 H* (0.7-2.0) mmol/L Total Bilirubin (0.2-1.3) mg/dL AST (14-36) U/L ALT (4-34) U/L Albumin (3.5-5.0) g/dL Urine Appearance Cloudy H (Clear) Urine Protein Trace H (Negative) Ur Leukocyte Esterase Large H (Negative) Urine WBC 22 H (0-5) /hpf Ur Squamous Epith Cells 7 H (0-4) /hpf Urine Bacteria Occasional H (None) /hpf Urine Mucus Rare H (None) /hpf Coronavirus (PCR) (Not Detectd) 03/22/21 03/22/21 Range/Units 08:37 10:41 WBC (3.8-10.6) k/uL Neutrophils # (1.3-7.7) k/uL Lymphocytes # (1.0-4.8) k/uL Sodium 135 L (137-145) mmol/L Glucose 135 H (74-99) mg/dL Plasma Lactic Acid Issa (0.7-2.0) mmol/L Total Bilirubin 1.4 H (0.2-1.3) mg/dL AST 59 H (14-36) U/L ALT 37 H (4-34) U/L Albumin 3.4 L (3.5-5.0) g/dL Urine Appearance (Clear) Urine Protein (Negative) Ur Leukocyte Esterase (Negative) Urine WBC (0-5) /hpf Ur Squamous Epith Cells (0-4) /hpf Urine Bacteria (None) /hpf Urine Mucus (None) /hpf Coronavirus (PCR) Detected A (Not Detectd)
[2021-03-22] MEDS: ENOXAPARIN 40 MG/0.4 ML SYRINGE SQ SCH (21:50)
[2021-03-23] MEDS: HYDROmorphone 1 MG/ML 1 ML SYRINGE IVP PRN ×3 (01:37→12:04)
[2021-03-23] MEDS: SODIUM CHLORIDE 0.9% 1,000 ML IV SCH ×3 (02:52→20:30)
[2021-03-23] MEDS: PIPERACILLIN-TAZOBACTAM 3.375 GM in SODIUM CHLORIDE 0.9% 100 ML IVPB SCH ×3 (03:00→20:30)
[2021-03-23] MEDS: ENOXAPARIN 40 MG/0.4 ML SYRINGE SQ SCH (08:14)
[2021-03-23] MEDS: METOPROLOL SUCCINATE (ER) 50 MG TAB.ER.24H PO SCH (08:15)
[2021-03-23 09:10] LABS: African American GFR (CKD) 100.5 (60.0-200.0); Albumin 3.2 g/dL (3.8-4.9); Albumin/Globulin Ratio 1.6 (1.60-3.17); Anion Gap 9.7 mmol/L (10.00-18.00); BUN/Creat Ratio 18.5 Ratio (12.00-20.00); Blood Urea Nitrogen 11.1 mg/dL (9.0-27.0); Calcium 8.1 mg/dL (8.7-10.3); Carbon Dioxide 23.3 mmol/L (20.0-27.5); Non-African American GFR(CKD) 86.7 (60.0-200.0); Potassium 3.4 mmol/L (3.5-5.5); Total Bilirubin 1.4 mg/dL (0.30-1.20); Total Protein 5.2 g/dL (6.2-8.2)
--- NOTE | 2021-03-23 10:26 | P.PN ---
Subjective Progress Note Date: 03/23/21 Patient seen and examined at bedside. States she is having some abdominal soreness since surgery. ZEE drain is in place. Denies any nausea or vomiting. Is out of bed in the chair. No additional complaints. Objective - Vital Signs Vital signs: Vital Signs Temp 98.7 F 03/23/21 07:00 Pulse 89 03/23/21 07:00 Resp 16 03/23/21 08:14 BP 122/62 03/23/21 07:00 Pulse Ox 94 L 03/23/21 07:00 Intake & Output 03/22/21 03/23/21 03/23/21 18:59 06:59 18:59 Intake Total 900 Output Total 10 30 Balance 890 -30 Weight 77.111 kg Intake: IV 900 Output: Drainage 30 Right Abdomen 30 Estimated Blood Loss 10 Other: Voiding Method Toilet Toilet # Voids 1 1 - Constitutional General appearance: Present: cooperative, no acute distress - Respiratory Details: No difficulty with respiration - Gastrointestinal Gastrointestinal Comment(s): Soft, appropriate tenderness, nondistended, no rebound, no guarding, ZEE drain is in place with serosanguineous output, Incision sites are clean, dry and intact - Psychiatric Psychiatric: Present: A&O x's 3 - Labs CBC & Chem 7: 03/22/21 07:03 03/23/21 06:16 Labs: Abnormal Lab Results - Last 24 Hours (Table) 03/22/21 03/23/21 Range/Units 10:41 06:16 Potassium 3.4 L (3.5-5.5) mmol/L Anion Gap 9.70 L (10.00-18.00) mmol/L Glucose 124 H (70-110) mg/dL Calcium 8.1 L (8.7-10.3) mg/dL Total Bilirubin 1.40 H (0.30-1.20) mg/dL AST 62 H (13-35) U/L ALT 73 H (8-44) U/L Total Protein 5.2 L (6.2-8.2) g/dL Albumin 3.2 L (3.8-4.9) g/dL Coronavirus (PCR) Detected A (Not Detectd) Microbiology - Last 24 Hours (Table) 03/22/21 06:45 Blood Culture - Preliminary Blood No Growth after 24 hours 03/22/21 07:04 Blood Culture - Preliminary Blood No Growth after 24 hours 03/22/21 07:03 Urine Culture - Preliminary Urine,Clean Catch Assessment and Plan Plan: Postoperative day #1, robotic cholecystectomy with ZEE drain placement We will advance to full liquid diet Continue ZEE drain Continue to increase activity Continue incentive spirometry Continue medical management Total bilirubin is 1.4, will continue to follow
[2021-03-23 12:01] LABS: Basophils # (A) 0.01 X 10*3/uL (0.00-0.10); Basophils % (A) 0.1 %; Eosinophils # (A) 0.03 X 10*3/uL (0.04-0.35); Eosinophils % (A) 0.3 %; HCT 36.4 % (37.2-46.3); HGB 12.1 g/dL (12.0-15.0); Immature Grans, Automated 0.6 %; Lymphocytes # (A) 0.93 X 10*3/uL (0.90-5.00); Lymphocytes % (A) 7.8 %; MCH 29.4 pg (27.0-32.0); MCHC 33.2 g/dL (32.0-37.0); MCV 88.6 fL (80.0-97.0); Mean Platelet Volume 10.2 fL (9.5-12.2); Monocytes # (A) 0.99 X 10*3/uL (0.20-1.00); Monocytes % (A) 8.3 %; NRBC Per 100 WBC 0 /100 WBCS (0.0-0.0); Neutrophils # (A) 9.84 X 10*3/uL (1.80-7.70); Neutrophils % (A) 82.9 %; Platelet Count 257 X 10*3/uL (140-440); RBC 4.11 X 10*6/uL (4.10-5.20); RDW 13.7 % (11.5-14.5); WBC 11.87 X 10*3/uL (4.50-10.00)
[2021-03-23] MEDS: HYDROcodone/APAP 5-325MG 1 EACH TAB PO PRN (17:52)
[2021-03-23] MEDS ORDERED: POTASSIUM CHLORIDE ER 20 MEQ TAB.ER PO STA (18:57)
[2021-03-23] MEDS: METOPROLOL SUCCINATE (ER) 25 MG TAB.ER.24H PO SCH (20:30)
--- NOTE | 2021-03-23 22:53 | P.PN ---
Progress Note - Text Progress Note Date: 03/23/21 Chief Complaint: Abdominal pain This is a pleasant 81-year-old patient of Dr. Watson. Chronic stable medical conditions include hypertension, hyperlipidemia, osteomyelitis. Patient otherwise in good health. 2 nights ago patient and the went for a fish dinner. Subsequently she started having increasing abdominal pain. Yesterday patient was throwing up the whole day. Worsening abdominal pain. Had a lot of belching. No fever and chills. Normally has regular bowel movements. Presented for the same. Still having significant abdominal pain. Found to have a gallstone in the gallbladder neck March 7: Soft with the patient this morning. Has a ZEE drain. Had a rather angry looking gallbladder that was removed laparoscopically yesterday. IV fluids. No flatus. Was on clear liquids this morning. Advance to full liquid for lunch. Told patient to increase activity as tolerated. IV fluids. IV Zosyn. Active Medications Hydrocodone Bitart/Acetaminophen (Hydrocodone/Apap 5-325mg 1 Each Tab) 1 each PO Q6HR PRN PRN Reason: Pain Last Admin: 03/23/21 17:52 Dose: 1 each Documented by: Atorvastatin Calcium (Atorvastatin 10 Mg Tab) 10 mg PO Q48H [facility] Last Admin: 03/22/21 13:27 Dose: 10 mg Documented by: Enoxaparin Sodium (Enoxaparin 40 Mg/0.4 Ml Syringe) 40 mg SQ DAILY [facility] Last Admin: 03/23/21 08:14 Dose: 40 mg Documented by: Hydromorphone HCl (Hydromorphone 1 Mg/Ml 1 Ml Syringe) 0.5 mg IVP Q3HR PRN PRN Reason: Moderate Pain Last Admin: 03/23/21 12:04 Dose: 0.5 mg Documented by: Sodium Chloride (Saline 0.9%) 1,000 mls @ 130 mls/hr IV .[id number] [facility] Last Admin: 03/23/21 20:30 Dose: 130 mls/hr Documented by: Piperacillin Sod/Tazobactam (Sod 3.375 gm/ Sodium Chloride) 100 mls @ 25 mls/hr IVPB Q8H [facility] Last Admin: 03/23/21 20:30 Dose: 25 mls/hr Documented by: Metoprolol Succinate (Metoprolol Succinate (Er) 50 Mg Tab.Er.24h) 50 mg PO DAILY [facility] Last Admin: 03/23/21 08:15 Dose: 50 mg Documented by: Metoprolol Succinate (Metoprolol Succinate (Er) 25 Mg Tab.Er.24h) 25 mg PO HS [facility] Last Admin: 03/23/21 20:30 Dose: 25 mg Documented by: Naloxone HCl (Naloxone 0.4 Mg/Ml 1 Ml Vial) 0.2 mg IV Q2M PRN PRN Reason: Opioid Reversal Ondansetron HCl (Ondansetron 4 Mg/2 Ml Vial) 4 mg IVP Q8HR PRN PRN Reason: Nausea And Vomiting Past medical history to include: Hypertension, hyperlipidemia, osteoarthritis Social history: , does not smoke or drink alcohol. Family history: Heart problems, diabetes Physical examination: VITAL SIGNS: 98.7, 89, 16, 1 22 x 62, 94% on 3 L GENERAL: , sitting up in a chair, awake EYES: Pupils equal. Conjunctiva normal. HEENT: External appearance of nose and ears normal, oral cavity grossly normal. NECK: JVD not raised; masses not palpable. HEART: First and second heart sounds are normal; no edema. LUNGS: Respiratory rate normal; clear to auscultation. ABDOMEN: Soft, significant right upper quadrant tenderness no obvious guarding rigidity, liver spleen not palpable, no masses palpable. Right upper quadrant ZEE drain PSYCH: Alert and oriented x3; mood and affect anxiousl. MUSCULOSKELETAL:No Clubbing/cyanosis;muscles-grossly intact. Evidence of OA INVESTIGATIONS, reviewed in the clinical context: March 23: White count 11.8 1112.1 potassium 3.4 creatinine 0.6 total bilirubin 1.4 AST 62 ALT 73 White count 14.6 hemoglobin 15.5 platelets 329 sodium 135 potassium 3.9 creatinine 0.57 Total bilirubin 1.4 AST 59 ALT 37 lactic acid 2.4 UA showing squamous epithelial cells Coronavirus [PCR]: Detected EKG tracing personally reviewed by me-normal sinus rhythm Chest x-ray film personally reviewed by me-possible infiltrate. Computed tomography scan of the abdomen: 1.600 with a gallstone in the gallbladder neck. Distended margins. Diffuse colonic diverticulosis. Gallbladder ultrasound: Suboptimal study. Assessment and plan: -Acute cholecystitis secondary to a large solitary gallstone 1.6 mm. laparoscopic cholecystectomy on March [address] Ceron. ZEE drain IV Zosyn. Clear liquids. - sepsis IV fluids. IV Zosyn. -Hyperlipidemia Lipitor 10 mg every 48 hours -Essential hypertension Toprol-XL continue -Primary osteoarthritis multiple joints bilateral Tylenol as needed -Hyperbilirubinemia, from starvation from vomiting -Mildly elevated LFTs. Likely from hepatic steatosis Liver ultrasound tomorrow Patient advanced to full liquid for lunch. Increase activity as tolerated. IV Zosyn. IV fluids. Repeat labs in the morning.
[2021-03-23] MEDS: dexAMETHasone 2 MG TAB PO SCH (23:16)
[2021-03-24] MEDS: SODIUM CHLORIDE 0.9% 1,000 ML IV SCH ×3 (02:41→20:30)
[2021-03-24] MEDS: HYDROcodone/APAP 5-325MG 1 EACH TAB PO PRN ×3 (02:41→18:24)
[2021-03-24] MEDS: PIPERACILLIN-TAZOBACTAM 3.375 GM in SODIUM CHLORIDE 0.9% 100 ML IVPB SCH ×3 (02:41→20:36)
[2021-03-24] MEDS ORDERED: LIDOCAINE 1% (10MG/ML) FOR IV START INTRADERMA PRN (07:12)
[2021-03-24] MEDS ORDERED: HYDROmorphone 1 MG/ML 1 ML SYRINGE IVP PRN (07:12)
[2021-03-24] MEDS ORDERED: DEXAMETHASONE SOD PHOSPHATE 4 MG/ML 1 ML VIAL IV ONE (07:12)
[2021-03-24] MEDS ORDERED: ONDANSETRON 4 MG/2 ML VIAL IVP PRN (07:12)
[2021-03-24] MEDS ORDERED: ONDANSETRON 4 MG/2 ML VIAL IVP ONE (07:12)
[2021-03-24 09:58] LABS: Basophils # (A) 0.01 X 10*3/uL (0.00-0.10); Basophils % (A) 0.1 %; Eosinophils # (A) 0.01 X 10*3/uL (0.04-0.35); Eosinophils % (A) 0.1 %; HCT 34.1 % (37.2-46.3); HGB 11.4 g/dL (12.0-15.0); Immature Grans, Automated 0.4 %; Lymphocytes # (A) 0.59 X 10*3/uL (0.90-5.00); Lymphocytes % (A) 7.8 %; MCH 29.6 pg (27.0-32.0); MCHC 33.4 g/dL (32.0-37.0); MCV 88.6 fL (80.0-97.0); Mean Platelet Volume 10.4 fL (9.5-12.2); Monocytes # (A) 0.23 X 10*3/uL (0.20-1.00); NRBC Per 100 WBC 0 /100 WBCS (0.0-0.0); Neutrophils # (A) 6.71 X 10*3/uL (1.80-7.70); Neutrophils % (A) 88.6 %; Platelet Count 266 X 10*3/uL (140-440); RBC 3.85 X 10*6/uL (4.10-5.20); RDW 13.5 % (11.5-14.5); WBC 7.58 X 10*3/uL (4.50-10.00)
[2021-03-24] MEDS: ENOXAPARIN 40 MG/0.4 ML SYRINGE SQ SCH (10:02)
[2021-03-24] MEDS: METOPROLOL SUCCINATE (ER) 50 MG TAB.ER.24H PO SCH (10:02)
[2021-03-24 10:07] LABS: African American GFR (CKD) 103.5 (60.0-200.0); Albumin 3.1 g/dL (3.8-4.9); Albumin/Globulin Ratio 1.59 (1.60-3.17); Anion Gap 12.5 mmol/L (10.00-18.00); BUN/Creat Ratio 22.81 Ratio (12.00-20.00); Blood Urea Nitrogen 12.5 mg/dL (9.0-27.0); Calcium 8.3 mg/dL (8.7-10.3); Carbon Dioxide 22.5 mmol/L (20.0-27.5); Non-African American GFR(CKD) 89.3 (60.0-200.0); Potassium 4.2 mmol/L (3.5-5.5); Total Bilirubin 0.9 mg/dL (0.30-1.20); Total Protein 5.1 g/dL (6.2-8.2)
[2021-03-24] MEDS: dexAMETHasone 2 MG TAB PO SCH (10:10)
[2021-03-24] MEDS: ATORVASTATIN 10 MG TAB PO SCH (13:49)
--- NOTE | 2021-03-24 14:12 | P.PN ---
Subjective Progress Note Date: 03/24/21 Patient seen and examined at bedside. States she is feeling much better today. Started having flatus. Abdominal pain improving. She is ambulating in the room. Objective - Vital Signs Vital signs: Vital Signs Temp 97.9 F 03/24/21 07:00 Pulse 80 03/24/21 10:06 Resp 16 03/24/21 07:00 BP 157/81 03/24/21 07:00 Pulse Ox 92 L 03/24/21 07:00 Intake & Output 03/23/21 03/24/21 03/24/21 18:59 06:59 18:59 Intake Total 478 118 Output Total 40 25 Balance 438 93 Intake: Oral 478 118 Output: Drainage 40 25 Right Abdomen 40 25 Other: Voiding Method Toilet # Voids 2 1 - Constitutional General appearance: Present: cooperative, no acute distress - Respiratory Details: No difficulty with respiration - Gastrointestinal Gastrointestinal Comment(s): Soft, nontender, nondistended, no rebound, no guarding, incision sites are clean, dry and intact, ZEE drain with serosanguineous output - Psychiatric Psychiatric: Present: A&O x's 3 - Labs CBC & Chem 7: 03/24/21 05:47 03/24/21 05:47 Labs: Abnormal Lab Results - Last 24 Hours (Table) 03/24/21 03/24/21 03/24/21 Range/Units 05:47 05:47 05:47 RBC 3.85 L (4.10-5.20) X 10*6/uL Hgb 11.4 L (12.0-15.0) g/dL Hct 34.1 L (37.2-46.3) % Lymphocytes # 0.59 L (0.90-5.00) X 10*3/uL Eosinophils # 0.01 L (0.04-0.35) X 10*3/uL Creatinine 0.5 L (0.6-1.5) mg/dL BUN/Creatinine Ratio 22.81 H (12.00-20.00) Ratio Glucose 153 H (70-110) mg/dL Calcium 8.3 L (8.7-10.3) mg/dL AST 47 H (13-35) U/L ALT 69 H (8-44) U/L Total Protein 5.1 L (6.2-8.2) g/dL Albumin 3.1 L (3.8-4.9) g/dL Albumin/Globulin Ratio 1.59 L (1.60-3.17) g/dL Procalcitonin 0.12 H (0.02-0.09) ng/mL Microbiology - Last 24 Hours (Table) 03/22/21 06:45 Blood Culture - Preliminary Blood No Growth after 48 hours 03/22/21 07:04 Blood Culture - Preliminary Blood No Growth after 48 hours 03/22/21 07:03 Urine Culture - Final Urine,Clean Catch Assessment and Plan Plan: Postoperative day #2, robotic cholecystectomy with ZEE drain placement We will advance to low-fat diet Continue ZEE drain, will discontinue prior to discharge Continue to increase activity Continue incentive spirometry Continue medical management Total bilirubin has normalized
[2021-03-24] MEDS: LACTATED RINGERS 1,000 ML IV SCH (20:29)
[2021-03-24] MEDS: METOPROLOL SUCCINATE (ER) 25 MG TAB.ER.24H PO SCH (20:36)
--- NOTE | 2021-03-24 21:48 | P.PN ---
Progress Note - Text Progress Note Date: 03/24/21 Chief Complaint: Abdominal pain This is a pleasant 81-year-old patient of Dr. Watson. Chronic stable medical conditions include hypertension, hyperlipidemia, osteomyelitis. Patient otherwise in good health. 2 nights ago patient and the went for a fish dinner. Subsequently she started having increasing abdominal pain. Yesterday patient was throwing up the whole day. Worsening abdominal pain. Had a lot of belching. No fever and chills. Normally has regular bowel movements. Presented for the same. Still having significant abdominal pain. Found to have a gallstone in the gallbladder neck March 23: Soft with the patient this morning. Has a ZEE drain. Had a rather angry looking gallbladder that was removed laparoscopically yesterday. IV fluids. No flatus. Was on clear liquids this morning. Advance to full liquid for lunch. Told patient to increase activity as tolerated. IV fluids. IV Zosyn. March 24: Tolerating full liquid diet. Had a BM. Did ambulate. Pain better. ZEE drain in place. Advance to low-fat diet. Discussed with the patient and Dr. Ceron. Also patient was started yesterday dexamethasone given the borderline pulse ox of 93% from COVID-19. Other no other symptoms. Active Medications Hydrocodone Bitart/Acetaminophen (Hydrocodone/Apap 5-325mg 1 Each Tab) 1 each PO Q6HR PRN PRN Reason: Pain Last Admin: 03/24/21 18:24 Dose: 1 each Documented by: Atorvastatin Calcium (Atorvastatin 10 Mg Tab) 10 mg PO Q48H [facility] Last Admin: 03/24/21 13:49 Dose: 10 mg Documented by: Dexamethasone (Dexamethasone 2 Mg Tab) 6 mg PO DAILY [facility] Last Admin: 03/24/21 10:10 Dose: 6 mg Documented by: Enoxaparin Sodium (Enoxaparin 40 Mg/0.4 Ml Syringe) 40 mg SQ DAILY [facility] Last Admin: 03/24/21 10:02 Dose: 40 mg Documented by: Hydromorphone HCl (Hydromorphone 1 Mg/Ml 1 Ml Syringe) 0.5 mg IVP Q3HR PRN PRN Reason: Moderate Pain Last Admin: 03/23/21 12:04 Dose: 0.5 mg Documented by: Hydromorphone HCl (Hydromorphone 1 Mg/Ml 1 Ml Syringe) 0.5 mg IVP Q5M PRN PRN Reason: Phase I - Pain Control Stop: 03/24/21 23:00 Sodium Chloride (Saline 0.9%) 1,000 mls @ 130 mls/hr IV .Q7H42M [facility] Last Admin: 03/24/21 20:30 Dose: Not Given Documented by: Piperacillin Sod/Tazobactam (Sod 3.375 gm/ Sodium Chloride) 100 mls @ 25 mls/hr IVPB Q8H [facility] Last Admin: 03/24/21 20:36 Dose: 25 mls/hr Documented by: Lactated Ringer's (Lactated Ringers) 1,000 mls @ 20 mls/hr IV .Q24H [facility] Last Admin: 03/24/21 20:29 Dose: Not Given Documented by: Lidocaine HCl (Lidocaine 1% (10mg/Ml) For Iv Start) 0.1 ml INTRADERMA PER PROTOCOL PRN PRN Reason: IV Start Metoprolol Succinate (Metoprolol Succinate (Er) 50 Mg Tab.Er.24h) 50 mg PO DAILY [facility] Last Admin: 03/24/21 10:02 Dose: 50 mg Documented by: Metoprolol Succinate (Metoprolol Succinate (Er) 25 Mg Tab.Er.24h) 25 mg PO HS [facility] Last Admin: 03/24/21 20:36 Dose: 25 mg Documented by: Naloxone HCl (Naloxone 0.4 Mg/Ml 1 Ml Vial) 0.2 mg IV Q2M PRN PRN Reason: Opioid Reversal Ondansetron HCl (Ondansetron 4 Mg/2 Ml Vial) 4 mg IVP Q8HR PRN PRN Reason: Nausea And Vomiting Ondansetron HCl (Ondansetron 4 Mg/2 Ml Vial) 4 mg IVP ONCE PRN PRN Reason: Phase I - Nausea And Vomiting Stop: 03/24/21 23:00 Past medical history to include: Hypertension, hyperlipidemia, osteoarthritis Social history: , does not smoke or drink alcohol. Family history: Heart problems, diabetes Physical examination: VITAL SIGNS: 98.3, 68, 16, 1 27 x 75, 95% room air GENERAL: , sitting up in a chair, awake EYES: Pupils equal. Conjunctiva normal. HEENT: External appearance of nose and ears normal, oral cavity grossly normal. NECK: JVD not raised; masses not palpable. HEART: First and second heart sounds are normal; no edema. LUNGS: Respiratory rate normal; clear to auscultation. ABDOMEN: Soft, some abdominal tenderness no obvious guarding rigidity, liver spleen not palpable, no masses palpable. Right upper quadrant ZEE drain PSYCH: Alert and oriented x3; mood and affect anxiousl. MUSCULOSKELETAL:No Clubbing/cyanosis;muscles-grossly intact. Evidence of OA INVESTIGATIONS, reviewed in the clinical context: March 24: White count 7.5 hemoglobin 11.4 potassium 4.2 creatinine 0.5 total bilirubin 0.9 pro-calcitonin 0.12 March 23: White count 11.8 1112.1 potassium 3.4 creatinine 0.6 total bilirubin 1.4 AST 62 ALT 73 White count 14.6 hemoglobin 15.5 platelets 329 sodium 135 potassium 3.9 creatinine 0.57 Total bilirubin 1.4 AST 59 ALT 37 lactic acid 2.4 UA showing squamous epithelial cells Coronavirus [PCR]: Detected EKG tracing personally reviewed by me-normal sinus rhythm Chest x-ray film personally reviewed by me-possible infiltrate. Computed tomography scan of the abdomen: 1.600 with a gallstone in the gallbladder neck. Distended margins. Diffuse colonic diverticulosis. Gallbladder ultrasound: Suboptimal study. Assessment and plan: -Acute cholecystitis secondary to a large solitary gallstone 1.6 mm. laparoscopic cholecystectomy on March [address] Ceron. ZEE drain IV Zosyn. Tolerated full liquids. Advance to low-fat. - sepsis: Better IV fluids. IV Zosyn. -COVID-19 positive Dexamethasone. -Hyperlipidemia Lipitor 10 mg every 48 hours -Essential hypertension Toprol-XL continue -Primary osteoarthritis multiple joints bilateral Tylenol as needed -Hyperbilirubinemia, from starvation from vomiting -Mildly elevated LFTs. Likely from hepatic steatosis Liver ultrasound tomorrow Advanced to low-fat diet. Continue IV Zosyn. Hopefully discharge tomorrow. Liver ultrasound in the morning.
[2021-03-25] MEDS: SODIUM CHLORIDE 0.9% 1,000 ML IV SCH ×2 (00:06→08:26)
[2021-03-25] MEDS: HYDROcodone/APAP 5-325MG 1 EACH TAB PO PRN ×2 (00:59→09:13)
[2021-03-25] MEDS: PIPERACILLIN-TAZOBACTAM 3.375 GM in SODIUM CHLORIDE 0.9% 100 ML IVPB SCH (04:13)
--- NOTE | 2021-03-25 07:30 | US ---
EXAMINATION TYPE: US abdomen limited DATE OF EXAM: 03/25/2021 COMPARISON: Recent US CLINICAL HISTORY: Mild elevation of LFTs. Elevated LFT's, pt had recent GB removed 3 days ago EXAM MEASUREMENTS: Liver Length: 16.5 cm CBD: 0.7 cm Right Kidney: 10.3 x 4.4 x 4.8 cm Pancreas: wnl, tail obscured by overlying bowel gas Liver: Visualized portions appeared wnl Gallbladder: Surgically absent Evidence for sonographic Avelar's sign: No CBD: wnl, post [place] Right Kidney: wnl, lower pole gassed out IMPRESSION: Postcholecystectomy changes. Otherwise unremarkable study.
[2021-03-25] MEDS: LACTATED RINGERS 1,000 ML IV SCH (08:24)
[2021-03-25] MEDS: METOPROLOL SUCCINATE (ER) 50 MG TAB.ER.24H PO SCH (08:27)
[2021-03-25] MEDS: dexAMETHasone 2 MG TAB PO SCH (08:27)
[2021-03-25] MEDS: ENOXAPARIN 40 MG/0.4 ML SYRINGE SQ SCH (08:27)
[2021-03-25 08:34] VITALS: BP 181/76; PULSE 61; RESP 16; TEMP 97.9
--- NOTE | 2021-03-25 08:40 | P.PN ---
Subjective Progress Note Date: 03/25/21 Patient seen and examined at bedside. Doing well. Denies any significant abdominal pain. Denies nausea or vomiting. Objective - Vital Signs Vital signs: Vital Signs Temp 97.9 F 03/25/21 07:20 Pulse 61 03/25/21 07:20 Resp 16 03/25/21 07:20 BP 181/76 03/25/21 07:20 Pulse Ox 97 03/25/21 07:20 Intake & Output 03/24/21 03/25/21 03/25/21 18:59 06:59 18:59 Intake Total 236 Output Total 25 Balance 211 Intake: Oral 236 Output: Drainage 25 Right Abdomen 25 Other: Voiding Method Toilet # Voids 2 2 - Constitutional General appearance: Present: cooperative, no acute distress - Gastrointestinal Gastrointestinal Comment(s): Soft, appropriate incisional tenderness, nondistended, no rebound, no guarding, ZEE drain in place with serosanguineous output - Psychiatric Psychiatric: Present: A&O x's 3 - Labs CBC & Chem 7: 03/24/21 05:47 03/24/21 05:47 Labs: Abnormal Lab Results - Last 24 Hours (Table) 03/24/21 03/24/21 03/24/21 Range/Units 05:47 05:47 05:47 RBC 3.85 L (4.10-5.20) X 10*6/uL Hgb 11.4 L (12.0-15.0) g/dL Hct 34.1 L (37.2-46.3) % Lymphocytes # 0.59 L (0.90-5.00) X 10*3/uL Eosinophils # 0.01 L (0.04-0.35) X 10*3/uL Creatinine 0.5 L (0.6-1.5) mg/dL BUN/Creatinine Ratio 22.81 H (12.00-20.00) Ratio Glucose 153 H (70-110) mg/dL Calcium 8.3 L (8.7-10.3) mg/dL AST 47 H (13-35) U/L ALT 69 H (8-44) U/L Total Protein 5.1 L (6.2-8.2) g/dL Albumin 3.1 L (3.8-4.9) g/dL Albumin/Globulin Ratio 1.59 L (1.60-3.17) g/dL Procalcitonin 0.12 H (0.02-0.09) ng/mL Microbiology - Last 24 Hours (Table) 03/22/21 06:45 Blood Culture - Preliminary Blood No Growth after 48 hours 03/22/21 07:04 Blood Culture - Preliminary Blood No Growth after 48 hours Assessment and Plan Plan: Postoperative day #3, robotic cholecystectomy with ZEE drain placement Continue low-fat diet ZEE drain to be removed today, this was discussed with nursing staff Continue to increase activity Continue incentive spirometry Surgically stable for discharge, Follow-up as an outpatient for postoperative care
--- NOTE | 2021-03-25 21:37 | P.DS ---
Providers Date of admission: 03/22/21 10:30 Expected date of discharge: 03/25/21 Attending physician: Jam Whitten Consults: 03/22/21 10:25 Consult Physician Routine Consulting Provider: Jolene Ceron Consult Reason/Comments: Cholelithiasis, cholecystitis Do you want consulting provider notified?: Already Contacted [facility] Course: Chief Complaint: Abdominal pain This is a pleasant 81-year-old patient of Dr. Watson. Chronic stable medical conditions include hypertension, hyperlipidemia, osteomyelitis. Patient otherwise in good health. 2 nights ago patient and the went for a fish dinner. Subsequently she started having increasing abdominal pain. Yesterday patient was throwing up the whole day. Worsening abdominal pain. Had a lot of belching. No fever and chills. Normally has regular bowel movements. Presented for the same. Still having significant abdominal pain. Found to have a gallstone in the gallbladder neck March 23: Soft with the patient this morning. Has a ZEE drain. Had a rather angry looking gallbladder that was removed laparoscopically yesterday. IV fluids. No flatus. Was on clear liquids this morning. Advance to full liquid for lunch. Told patient to increase activity as tolerated. IV fluids. IV Zosyn. March 24: Tolerating full liquid diet. Had a BM. Did ambulate. Pain better. ZEE drain in place. Advance to low-fat diet. Discussed with the patient and Dr. Ceron. Also patient was started yesterday dexamethasone given the borderline pulse ox of 93% from COVID-19. Other no other symptoms. March 25: Doing well. But it is soft bland diet. Passed flatus. Cleared by Dr. Ceron to be discharged. Patient given a course of 7 days of Augmentin. Soft bland diet. Questions answered. No COVID symptoms. Stop steroids. Pulse ox is good. Discussion and discharge planning more than 35 minutes Past medical history to include: Hypertension, hyperlipidemia, osteoarthritis Social history: , does not smoke or drink alcohol. Family history: Heart problems, diabetes Physical examination: VITAL SIGNS: 97.9, 61, 16, 1 6281, 77% room air GENERAL: , sitting up in a chair, comfortable EYES: Pupils equal. Conjunctiva normal. HEENT: External appearance of nose and ears normal, oral cavity grossly normal. NECK: JVD not raised; masses not palpable. HEART: First and second heart sounds are normal; no edema. LUNGS: Respiratory rate normal; clear to auscultation. ABDOMEN: Soft, some abdominal tenderness no obvious guarding rigidity, liver spleen not palpable, no masses palpable. Right upper quadrant ZEE drain PSYCH: Alert and oriented x3; mood and affect anxiousl. MUSCULOSKELETAL:No Clubbing/cyanosis;muscles-grossly intact. Evidence of OA INVESTIGATIONS, reviewed in the clinical context: Liver ultrasound unremarkable March 24: White count 7.5 hemoglobin 11.4 potassium 4.2 creatinine 0.5 total bilirubin 0.9 pro-calcitonin 0.12 March 23: White count 11.8 1112.1 potassium 3.4 creatinine 0.6 total bilirubin 1.4 AST 62 ALT 73 White count 14.6 hemoglobin 15.5 platelets 329 sodium 135 potassium 3.9 creatinine 0.57 Total bilirubin 1.4 AST 59 ALT 37 lactic acid 2.4 UA showing squamous epithelial cells Coronavirus [PCR]: Detected EKG tracing personally reviewed by me-normal sinus rhythm Chest x-ray film personally reviewed by me-possible infiltrate. Computed tomography scan of the abdomen: 1.600 with a gallstone in the gallbladder neck. Distended margins. Diffuse colonic diverticulosis. Gallbladder ultrasound: Suboptimal study. Assessment and plan: -Acute cholecystitis secondary to a large solitary gallstone 1.6 mm. laparoscopic cholecystectomy on March [address] Ceron. ZEE drain IV Zosyn. Low-fat diet. Augmentin for 7 days - sepsis: Better IV fluids. IV Zosyn. -COVID-19 positive Dexamethasone discontinued. -Hyperlipidemia Lipitor 10 mg every 48 hours -Essential hypertension Toprol-XL continue -Primary osteoarthritis multiple joints bilateral Tylenol as needed -Hyperbilirubinemia, from starvation from vomiting -Mildly elevated LFTs. Likely from hepatic steatosis Liver ultrasound unremarkable Disposition: Home Plan - Discharge Summary Discharge Rx Participant: No New Discharge Prescriptions: New Amoxicillin/Potassium Clav [Augmentin 875-125 Tablet] 1 tab PO Q12HR 1 Days #14 tab Continue Multivitamins, Thera [Multivitamin (formulary)] 1 tab PO DAILY Metoprolol Succinate [Toprol XL] 50 mg PO DAILY Atorvastatin [Lipitor] 10 mg PO Q48H Aspirin EC [Ecotrin Low Dose] 81 mg PO DAILY Vitamin B Complex 1 cap PO DAILY Metoprolol Succinate (ER) [Toprol XL] 25 mg PO HS Cholecalciferol [Vitamin D3 (25 Mcg = 1000 Iu)] 25 mcg PO DAILY hydroCHLOROthiazide 25 mg PO DAILY Discharge Medication List Aspirin EC [Ecotrin Low Dose] 81 mg PO DAILY 12/14/19 [History] Atorvastatin [Lipitor] 10 mg PO Q48H 12/14/19 [History] Metoprolol Succinate [Toprol XL] 50 mg PO DAILY 12/14/19 [History] Multivitamins, Thera [Multivitamin (formulary)] 1 tab PO DAILY 12/14/19 [History] Vitamin B Complex 1 cap PO DAILY 12/14/19 [History] Cholecalciferol [Vitamin D3 (25 Mcg = 1000 Iu)] 25 mcg PO DAILY 03/22/21 [History] Metoprolol Succinate (ER) [Toprol XL] 25 mg PO HS 03/22/21 [History] hydroCHLOROthiazide 25 mg PO DAILY 03/22/21 [History] Amoxicillin/Potassium Clav [Augmentin 875-125 Tablet] 1 tab PO Q12HR 1 Days #14 tab 03/25/21 [Rx] Follow up Appointment(s)/Referral(s): Kevin Watson MD [Primary Care Provider] - 1-2 days Jolene Ceron DO [Doctor of Osteopathic Medicine] - 04/08/21 11:15 am [facility] Visiting Nurse, [NON-STAFF] - 1-2 Days Patient Instructions/Handouts: *Surgery [facility] - Laparoscopic Cholecystectomy Discharge Instructions Activity/Diet/Wound Care/Special Instructions: low fat/soft bland diet activity as tolerated Discharge Disposition: HOME SELF-CARE
== END 2021-03-25 11:57 | disposition home or self-care (01) ==
LOC: EC 05:56 → 6NMEDSUR 10:30
PROVIDERS: ADMIT Hospitalist; ATTEND Hospitalist
DX: K80.12 Calculus of gallbladder with acute and chronic cholecystitis without obstruction (principal); A41.9 Sepsis, unspecified organism; U07.1 COVID-19; E78.5 Hyperlipidemia, unspecified; I10 Essential (primary) hypertension; E87.2 Acidosis; M19.91 Primary osteoarthritis, unspecified site; R79.89 Other specified abnormal findings of blood chemistry; T73.0XXA Starvation, initial encounter; Z86.19 Personal history of other infectious and parasitic diseases; Z71.3 Dietary counseling and surveillance; Z79.82 Long term (current) use of aspirin; Z79.899 Other long term (current) drug therapy; Z88.2 Allergy status to sulfonamides; Z88.8 Allergy status to other drugs, medicaments and biological substances; Z82.49 Family history of ischemic heart disease and other diseases of the circulatory system; Z83.3 Family history of diabetes mellitus
CPT/HCPCS: 47562; S2900; 36415; 71045; 74177; 76705; 80053; 81001; 82150; 83605; 83690; 84145; 84484; 85025; 87040; 87086; 87635; 88304; 93005; 96361; 96374; 96375; 96376; 99285

== ENCOUNTER → 2021-04-10 | Outpatient (CLI) | payer MEDICARE ==
--- NOTE | 2021-04-13 13:42 | MM ---
Reason for exam: screening (asymptomatic). Last mammogram was performed 4 years and 6 months ago. History: Patient is postmenopausal. Family history of breast cancer in sister. Benign excisional biopsy of the left breast, 1996. Physical Findings: A clinical breast exam by your physician is recommended on an annual basis and results should be correlated with mammographic findings. MG 3D Screening Mammo W/Cad Bilateral CC and MLO view(s) were taken. Prior study comparison: November 15, 2018, mammogram, performed at [facility]. October 04, 2017, mammogram, performed at [facility]. There are scattered fibroglandular densities. Finding: There are increasing 5 mm equal density (isodense), obscured round mass in the outer quadrant, middle position of the left breast below biopsy site, 5cm from the nipple. New finding since November 15, 2018 and October 04, 2017. ASSESSMENT: Incomplete: need additional imaging evaluation, BI-RAD 0 RECOMMENDATION: Ultrasound of the left breast. [facility] will attempt to contact patient to return for ultrasound.
== END | disposition home or self-care (01) ==
LOC: RADMAMWWP 15:00
PROVIDERS: ATTEND Family Medicine
DX: Z12.31 Encounter for screening mammogram for malignant neoplasm of breast (principal)
CPT/HCPCS: 77063; 77067

== ENCOUNTER → 2021-04-21 | Outpatient (CLI) | payer MEDICARE ==
--- NOTE | 2021-04-21 09:01 | USB ---
Reason for exam: additional evaluation requested from abnormal screening. History: Patient is postmenopausal. Family history of breast cancer in sister. Benign excisional biopsy of the left breast, 1996. Physical Findings: A clinical breast exam by your physician is recommended on an annual basis and results should be correlated with mammographic findings. US Breast Workup Limited LT Technologist: Lizbeth Whaley Left limited breast ultrasound including focal area of concern, retroareolar and axilla demonstrates a 1.0 x 0.6 x 0.3cm cystic cluster on three cysts in a row at 3 o'clock and a 0.3 x 0.3 x 0.3cm circular, cystic, benign lesion at 4 o'clcok. Some low sevel internal echoes probably debris. Scanned 1-4 o'clock. These results were verbally communicated with the patient and result sheet given to the patient on 04/21/21. ASSESSMENT: Benign, BI-RAD 2 RECOMMENDATION: Follow-up diagnostic mammogram and ultrasound of the left breast in 6 months.
== END | disposition home or self-care (01) ==
LOC: RADUSWWP 07:45
PROVIDERS: ATTEND Family Medicine
DX: R92.8 Other abnormal and inconclusive findings on diagnostic imaging of breast (principal)

== ENCOUNTER → 2021-10-26 | Outpatient (CLI) | payer MEDICARE ==
--- NOTE | 2021-10-26 10:30 | MM ---
Reason for Exam: Follow-up at short interval from prior study. Last screening mammogram was performed 7 month(s) ago. Patient History: Menarche at age 15. First Full-Term at age 25. Postmenopausal. Patient has history of breast feeding. 1996, Benign Excisional Biopsy on the left side. Sister had breast cancer, age 67. Risk Values: Babs 5 year model risk: 3.8%. NCI Lifetime model risk: 6.3%. Prior Study Comparison: 10/04/2017 Screening Mammogram, [facility]. 11/15/2018 Screening Mammogram, [facility]. 04/10/2021 Bilateral Screening Mammogram, [facility]. Tissue Density: Left: There are scattered fibroglandular densities. Findings: Analyzed By CAD. No new worrisome cluster microcalcifications within either breast. Stable nodularity within the 4:00 position of the left breast. No new worrisome mass. No significant change from prior exam. Overall Assessment: Probably benign, BI-RAD 3 Management: Diagnostic Breast Ultrasound of the left breast. A clinical breast exam by your physician is recommended on an annual basis and results should be correlated with mammographic findings. This exam should not preclude additional follow-up of suspicious palpable abnormalities. Results were given to the patient verbally at the time of exam. Electronically signed and approved by: Don Rodriguez D.O.
--- NOTE | 2021-10-26 10:33 | USB ---
Patient History: Menarche at age 15. First Full-Term at age 25. Postmenopausal. Patient has history of breast feeding. 1996, Benign Excisional Biopsy on the left side. Sister had breast cancer, age 67. Risk Values: Babs 5 year model risk: 3.8%. NCI Lifetime model risk: 6.3%. Prior Study Comparison: 10/04/2017 Screening Mammogram, [facility]. 11/15/2018 Screening Mammogram, [facility]. 04/10/2021 Bilateral Screening Mammogram, [facility]. Findings: The upper outer quadrant of the left breast, the axilla of the left breast and the retroareolar of the left breast were scanned. Limited left breast ultrasound of previous area concern, retroareolar and axilla demonstrates stable 1.0 x 0.3 x 0.6 cm cystic structure of 3 cysts in a row at 3:00 and a stable 0.3 x 0.3 x 0.3 cm circular, cystic, benign lesion have 4:00. No new suspicious lesions. Overall Assessment: Probably benign, BI-RAD 3 Management: Diagnostic Breast Ultrasound of the left breast in 6 months. A clinical breast exam by your physician is recommended on an annual basis and results should be correlated with mammographic findings. Electronically signed and approved by: Don Rodriguez D.O.
== END | disposition home or self-care (01) ==
LOC: RADMAMWWP 09:27
PROVIDERS: ATTEND Family Medicine
DX: R92.8 Other abnormal and inconclusive findings on diagnostic imaging of breast (principal)
CPT/HCPCS: 77065; 76642; G0279; 77061

== ENCOUNTER → 2022-05-17 | Outpatient (CLI) | payer MEDICARE ==
--- NOTE | 2022-05-17 11:30 | USB ---
Reason for Exam: Follow-up at short interval from prior study. Patient History: Menarche at age 15. First Full-Term at age 25. Postmenopausal. Patient has history of breast feeding. 1996, Benign Excisional Biopsy on the left side. Sister had breast cancer, age 67. Risk Values: Babs 5 year model risk: 3.7%. NCI Lifetime model risk: 5.7%. Prior Study Comparison: 11/15/2018 Screening Mammogram, [facility]. 04/10/2021 Bilateral Screening Mammogram, [facility]. 10/26/2021 Left US breast limited LT, [facility]. 10/26/2021 Left MG 3D diag mammo w/cad LT, [facility]. Findings: The axilla of the left breast and the retroareolar of the left breast were scanned. 3 adjacent cysts appear to be present within the 3:00 position 7 cm from the nipple. These have good through transmission. Finding appears stable from comparison. This appears to correlate with the mammogram. Overall Assessment: Benign, BI-RAD 2 Management: Screening Mammogram of both breasts in 1 year. A clinical breast exam by your physician is recommended on an annual basis and results should be correlated with mammographic findings. This exam should not preclude additional follow-up of suspicious palpable abnormalities. Results were given to the patient verbally at the time of exam. Electronically signed and approved by: Ross Escamilla D.O. Radiologis
--- NOTE | 2022-05-17 11:31 | MM ---
Reason for Exam: Additional evaluation requested from prior study. Last mammogram was performed 1 year(s) and 2 month(s) ago. Patient History: Menarche at age 15. First Full-Term at age 25. Postmenopausal. Patient has history of breast feeding. 1996, Benign Excisional Biopsy on the left side. Sister had breast cancer, age 67. Risk Values: Babs 5 year model risk: 3.7%. NCI Lifetime model risk: 5.7%. Tissue Density: There are scattered fibroglandular densities. Findings: Analyzed By CAD. There is symmetrical and stable. Some chronic nodularity within the left breast remains stable. Benign round calcifications present. Distortion which may be related to prior biopsy in the upper outer left breast, stable from comparison. Right breast is unchanged. Benign rounded calcifications are within the right breast. Overall Assessment: Benign, BI-RAD 2 Management: Screening Mammogram of both breasts in 1 year. A negative mammogram report should not preclude additional follow up of suspicious palpable abnormalities. Patient should continue monthly self breast exam. A clinical breast exam by your physician is recommended on an annual basis and results should be correlated with mammographic findings. Electronically signed and approved by: Ross Escamilla D.O. Radiologis
== END | disposition home or self-care (01) ==
LOC: RADUSWWP 09:37
PROVIDERS: ATTEND Family Medicine
DX: R92.8 Other abnormal and inconclusive findings on diagnostic imaging of breast (principal); Z78.0 Asymptomatic menopausal state; Z80.3 Family history of malignant neoplasm of breast
CPT/HCPCS: 77066; 76642; G0279; 77062

== ENCOUNTER → 2023-05-26 | Outpatient (CLI) | payer MEDICARE ==
--- NOTE | 2023-05-27 10:32 | MM ---
Reason for Exam: Screening (asymptomatic). Last screening mammogram was performed 12 month(s) ago. Patient History: Menarche at age 15. First Full-Term at age 25. Postmenopausal. Patient has history of breast feeding. 1996, Benign Excisional Biopsy on the left side. Sister had breast cancer, age 67. Risk Values: Babs 5 year model risk: 3.6%. NCI Lifetime model risk: 5.2%. Prior Study Comparison: 04/10/2021 Bilateral Screening Mammogram, [facility]. 10/26/2021 Left MG 3D diag mammo w/cad LT, [facility]. 05/17/2022 Bilateral MG 3D diag mammo w/cad [facility], [facility]. Tissue Density: There are scattered areas of fibroglandular density. Findings: Analyzed By CAD. Benign calcifications. No suspicious grouped calcifications. Within the posterior central left breast approximately 7 cm from the nipple there is a 5 mm density slightly increased prior exam and not seen with certainty on more distant remote exams. Recommend spot compression view. Overall Assessment: Incomplete: need additional imaging evaluation, BI-RAD 0 Management: Diagnostic Mammogram of the left breast. . Patient should continue monthly self-breast exams. A clinical breast exam by your physician is recommended on an annual basis. This exam should not preclude additional follow-up of suspicious palpable abnormalities. Note on Babs scores and lifetime risk: 1. A Babs score greater than 3% is considered moderate risk. If this is the case, consider specialist referral to assess eligibility for a risk reducing agent. 2. If overall lifetime risk for the development of breast cancer is 20% or higher, the patient may qualify for future screening with alternating mammogram and breast MRI. Electronically signed and approved by: Derek Liang M.D. Radiologis
== END | disposition home or self-care (01) ==
LOC: RADMAMWWP 11:21
PROVIDERS: ATTEND Family Medicine
DX: Z12.31 Encounter for screening mammogram for malignant neoplasm of breast (principal); Z78.0 Asymptomatic menopausal state; Z80.3 Family history of malignant neoplasm of breast
CPT/HCPCS: 77063; 77067

== ENCOUNTER → 2023-05-31 | Outpatient (CLI) | payer MEDICARE ==
--- NOTE | 2023-05-31 11:07 | MM ---
Reason for Exam: Additional evaluation requested from abnormal screening. Last screening mammogram was performed less than 1 month ago. Patient History: Menarche at age 15. First Full-Term at age 25. Postmenopausal. Patient has history of breast feeding. 1996, Benign Excisional Biopsy on the left side. Sister had breast cancer, age 67. Risk Values: Babs 5 year model risk: 3.6%. NCI Lifetime model risk: 5.2%. Prior Study Comparison: 09/27/2016 Bilateral Screening Mammogram, [facility]. 10/04/2017 Screening Mammogram, [facility]. 11/15/2018 Screening Mammogram, [facility]. 04/10/2021 Bilateral Screening Mammogram, [facility]. 10/26/2021 Left MG 3D diag mammo w/cad LT, [facility]. 05/17/2022 Bilateral MG 3D diag mammo w/cad [facility], [facility]. 05/26/2023 Bilateral MG 3D screening mammo w/cad, [facility]. Tissue Density: Left: There are scattered areas of fibroglandular density. Findings: Analyzed By CAD. The far posterior inferior area of asymmetric density does not persist on additional views. Overall Assessment: Benign, BI-RAD 2 Management: Screening Mammogram of both breasts in 1 year. See note below in regards to patient's increased 5 year Babs score. Results were given to the patient verbally at the time of exam. Patient should continue monthly self-breast exams. A clinical breast exam by your physician is recommended on an annual basis. This exam should not preclude additional follow-up of suspicious palpable abnormalities. Note on Babs scores and lifetime risk: 1. A Babs score greater than 3% is considered moderate risk. If this is the case, consider specialist referral to assess eligibility for a risk reducing agent. 2. If overall lifetime risk for the development of breast cancer is 20% or higher, the patient may qualify for future screening with alternating mammogram and breast MRI. Electronically signed and approved by: Teresa Gomez M.D. Radiologist
== END | disposition home or self-care (01) ==
LOC: RADMAMWWP 10:13
PROVIDERS: ATTEND Family Medicine
DX: R92.322 Mammographic fibroglandular density, left breast (principal); Z78.0 Asymptomatic menopausal state; Z80.3 Family history of malignant neoplasm of breast
CPT/HCPCS: 77065; G0279; 77061